=== PATIENT | female | born 1995 | race Caucasian/White ===

== ENCOUNTER 2016-09-18 14:36 | Outpatient (CLI) | payer OTHER ==
--- NOTE | 2016-09-18 14:52 | Non Stress Test Report ---
Non Stress Test Datetime Report Generated by CPN: 09/18/2016 14:51 DEMOGRAPHIC EGA NST: 34.5 INDICATION Indication for Study: Other Indication for Study (NST) Other: Repeat NST, 2VC VITAL SIGNS Temperature - NST: 98.0 Pulse - NST: 87 RESP - NST: 17 NBPSYS NST: 114 NBPDIA NST: 67 MONITORING Monitor Explained: Monitor Explained; Test Explained; Patient Verbalized Understanding Time on Monitor: 08/16/2016 16:07 Time off Monitor: 08/16/2016 16:51 NST Duration: 44 NST INTERVENTIONS NST Interventions: PO Hydration; Reposition Patient Physician Notified NST: Dr. Gamez BABY A: [id number] BABY A Movement : Present Contraction Frequency : irreg FHR Baseline : 125 Accelerations : 15X15 Decelerations : None Variability : Moderate 6-25bpm NST Review: Meets Criteria for Reactive NST NST Review and Verified By : Delilah Olivera RNC NST Results: Reactive NST REPORT Report Trigger: Send Report
[2016-09-18 15:37] LABS: AMNISURE (ROM) NEGATIVE (NEGATIVE)
[2016-09-18 15:43] LABS: APPEARANCE,URINE CLOUDY; BILIRUBIN,URINE NEGATIVE (NEGATIVE); GLUCOSE, URINE NEGATIVE (NEGATIVE); KETONES,URINE NEGATIVE (NEGATIVE); LEUKOCYTE ESTERASE,URINE LARGE (NEGATIVE); NITRITE,URINE NEGATIVE (NEGATIVE); PROTEIN,URINE NEGATIVE (NEGATIVE); URINE SPECIFIC GRAVITY 1.016; UROBILINOGEN,URINE NEGATIVE mg/dL (<2.0)
--- NOTE | 2016-09-18 16:00 | L&D Flow Sheet ---
LD Flowsheet Datetime Report Generated by CPN: 09/18/2016 16:00 Datetime: 09/18/2016 15:32 Uterine Activity Frequency (min): q 15 mins (Mavelyn Zechariah, SN) Pain Pain Scale: 1 (Mavelyn Zechariah, SN) Pain Presence: Intermittent (Mavelyn Zechariah, SN) Pain Type: Cramping (Mavelyn Zechariah, SN) Pain Location: Abdomen; Back (Mavelyn Zechariah, SN) Pain Goal: 0 (Mavelyn Zechariah, SN) Pain Coping: Talking Through Contractions (Mavelyn Zechraiah, SN) Vaginal Exam Vaginal Bleeding: None (Mavelyn Zechariah, SN) Maternal Assessment Level of Consciousness: Fully Conscious (Mavelyn Zechariah, SN) DTR's/Clonus: DTRs 2+; No Clonus (Mavelyn Zechariah, SN) Headache: Denies (Mavelyn Zechariah, SN) Breath Sounds, Left: Clear and Equal (Mavelyn Zechariah, SN) Breath Sounds, Right: Clear and Equal (Mavelyn Zechariah, SN) Nausea/Vomiting: Denies (Mavelyn Zechariah, SN) RUQ Epigastric Pain: Denies (Mavelyn Zechariah, SN) Communication LaborFlag: Antepartum (QS system process) Datetime: 09/18/2016 15:09 Temperature (F): 97.5 (Mavelyn Zechariah, SN) Temperature (C): 36.4 (QS system process) Communication LaborFlag: Antepartum (QS system process) Datetime: 09/18/2016 15:07 Assessment A Comments: Monitor applied and explained to pt. (Mavelyn Zechariah, SN) Patient Care Patient Position/Activity: Left Lateral (Mavelyn Zechariah, SN) Datetime: 09/18/2016 15:05 NBP Sys/Steph/Mean (mmHg): 108 (QS system process) : 58 (QS system process) : 77 (QS system process) Pulse: 69 (QS system process) Communication LaborFlag: Antepartum (QS system process) Datetime: 09/18/2016 15:04 Vital Signs Stage of : Antepartum (SN Veronica)
--- NOTE | 2016-09-18 16:13 | Non Stress Test Report ---
Non Stress Test Datetime Report Generated by CPN: 09/18/2016 16:13 DEMOGRAPHIC EGA NST: 39.3 INDICATION Indication for Study: Ordered by Provider MONITORING Monitor Explained: Monitor Explained; Test Explained; Patient Verbalized Understanding Time on Monitor: 09/18/2016 15:07 Time off Monitor: 09/18/2016 16:08 NST Duration: 61 NST INTERVENTIONS NST Interventions: PO Hydration Physician Notified NST: Dr. Gamez BABY A Movement : Present Contraction Frequency : Irreg FHR Baseline : 135 Accelerations : 15X15 Decelerations : None Variability : Moderate 6-25bpm NST Review: Meets Criteria for Reactive NST NST Review and Verified By : Alvarez Wolff RNC NST Results: Reactive NST REPORT Report Trigger: Send Report
[2016-09-18 16:19] LABS: URINE BARBITURATES SCREEN NEGATIVE; URINE METHADONE SCREEN NEGATIVE; URINE PHENCYCLIDINE SCREEN NEGATIVE
== END 2016-09-18 16:52 | disposition home or self-care (01) ==
LOC: LC 14:36
PROVIDERS: ATTEND Student in an Organized Health Care Education/Training Program
PROC: 4A1HXCZ Monitoring of Products of Conception, Cardiac Rate, External Approach (ICD-10-PCS; principal; 2016-09-18)
DX: O47.1 False labor at or after 37 completed weeks of gestation (principal); Z3A.39 39 weeks gestation of pregnancy
CPT/HCPCS: 59025; 80307; 81005; 84112

== ENCOUNTER 2016-09-22 20:23 | Inpatient (IN) | payer OTHER ==
[2016-09-22 21:00] LABS: APPEARANCE,URINE TURBID; BILIRUBIN,URINE NEGATIVE (NEGATIVE); GLUCOSE, URINE NEGATIVE (NEGATIVE); KETONES,URINE TRACE mg/dL (NEGATIVE); LEUKOCYTE ESTERASE,URINE MODERATE (NEGATIVE); NITRITE,URINE NEGATIVE (NEGATIVE); PROTEIN,URINE 100 mg/dL (NEGATIVE); URINE SPECIFIC GRAVITY 1.013; UROBILINOGEN,URINE NEGATIVE mg/dL (<2.0)
[2016-09-22 21:11] LABS: AMNISURE (ROM) POSITIVE (NEGATIVE)
[2016-09-22 21:37] LABS: URINE BARBITURATES SCREEN NEGATIVE; URINE METHADONE SCREEN NEGATIVE; URINE OPIATES LOW NEGATIVE; URINE PHENCYCLIDINE SCREEN NEGATIVE
--- NOTE | 2016-09-22 22:00 | L&D Flow Sheet ---
LD Flowsheet Datetime Report Generated by CPN: 09/22/2016 22:00 Datetime: 09/22/2016 21:54 NBP Sys/Steph/Mean (mmHg): 118 (QS system process) : 61 (QS system process) : 84 (QS system process) Pulse: 82 (QS system process) LaborFlag: Antepartum (QS system process) Datetime: 09/22/2016 21:29 Respirations: 18 (Margot Castillo) Monitor Mode: External; Palpation (Margot Castillo) Monitor Interventions for UA: [place] Adjusted (Margot Castillo) Frequency (min): 2-4 (Margot Castillo) Quality: Moderate (Margot Castillo) Duration (sec): 50-70 (Margot Castillo) Resting Tone (Palpate): Relaxed (Margot Castillo) Monitor Mode: External US (Margot Castillo) Monitor Interventions for FHR: Ultrasound Adjusted (Margot Castillo) FHR Baseline Rate : 130 (Margot Castillo) Variability: Moderate 6-25 bpm (Margot Castillo) Accelerations: 15X15 (Margot Castillo) Decelerations: None (Margot Castillo) Patient Position/Activity: Left Tilt (Margot Castillo) LaborFlag: Antepartum (QS system process) Datetime: 09/22/2016 21:26 IV/Blood Work: IV Started; IV Bolus Started (Annotations: 18g) (Margot Castillo) Patient Care Comments: lab at the bedside for lab draw (Margot Castillo) Datetime: 09/22/2016 21:23 NBP Sys/Steph/Mean (mmHg): 109 (QS system process) : 79 (QS system process) : 90 (QS system process) Pulse: 75 (QS system process) LaborFlag: Antepartum (QS system process) Datetime: 09/22/2016 21:00 Patient Care Comments: patient called for admit for positive amnisure. (Margot Castillo) Datetime: 09/22/2016 20:54 Frequency (min): 1-6 (Margot Castillo) Pain Scale: 2 (Margot Castillo) Pain Presence: Intermittent (Margot Castillo) Pain Type: Cramping (Margot Castillo) Pain Location: Abdomen; Back (Margot Castillo) Pain Goal: 0 (Margot Castillo) Pain Relief Measures: Comfort Measures (Margot Castillo) Pain Coping: Talking Through Contractions (Margot Castillo) Vaginal Bleeding: None (Margot Castillo) Level of Consciousness: Fully Conscious (Margot Castillo) DTR's/Clonus: DTRs 2+; No Clonus (Margot Castillo) Headache: Denies (Margot Castillo) Breath Sounds, Left: Clear and Equal (Margot Castillo) Breath Sounds, Right: Clear and Equal (Margot Castillo) Nausea/Vomiting: Denies (Margot Castillo) RUQ Epigastric Pain: Denies (Margot Castillo) Patient Position/Activity: Right Tilt (Margot Castillo) Instructional Method: Verbal (Margot Castillo) Plan of Care: Plan of Care Discussed (Margot Castillo) Unit Routine: [place] to Room; Call Stevens; Bed; Visiting Policy; Waiting Areas; Infant Security; Phone/Cell Phone Use; Photography; Unit Personnel; Consents Signed; Handwashing; Flu/Illness Precautions; Monitoring; IV Pumps; Safety/Fall Risk Prevention; Diet/Nutrition Services; Bathroom Privileges; Routine Time Outs; Medications (Margot Castillo) LaborFlag: Antepartum (QS system process) Datetime: 09/22/2016 20:52 NBP Sys/Steph/Mean (mmHg): 104 (QS system process) : 65 (QS system process) : 80 (QS system process) Pulse: 102 (QS system process) LaborFlag: Antepartum (QS system process) Datetime: 09/22/2016 20:48 Dilatation (cm): 2.0 (Margot Castillo) Effacement (%): 50 (Margot Castillo) Station: -2 (Margot Castillo) Exam by: A Castillo RN (Margot Castillo) Datetime: 09/22/2016 20:34 Patient Care Comments: patient to the floor for labor check (Margot Castillo)
[2016-09-22 22:04] LABS: ABSOLUTE BASOPHILS # (AUTO) 0.1 10^3/uL (0.0-0.2); ABSOLUTE LYMPHOCYTES (AUTO) 1.6 10^3/uL (0.5-4.7); ABSOLUTE MONOCYTES (AUTO) 0.8 10^3/uL (0.1-1.4); ABSOLUTE NEUT (AUTO) 9.8 10^3/uL (1.7-8.2); BASOPHILS % (AUTO) 0.5 % (0-2); EOSINOPHILS % (AUTO) 0.3 % (0-6); HEMATOCRIT 33.4 % (36.0-47.0); HEMOGLOBIN 10.6 g/dL (12.0-15.5); HGB HCT DIFFERENCE -1.6; LYMPHOCYTES % (AUTO) 12.6 % (13-45); MEAN CORPUSCULAR HEMOGLOBIN 24.2 pg (27.0-33.4); MEAN CORPUSCULAR HGB CONC 31.9 g/dL (32.0-36.0); MEAN CORPUSCULAR VOLUME 76 fl (80-97); MONOCYTES % (AUTO) 6.7 % (3-13); RED CELL DISTRIBUTION WIDTH 15.7 % (11.5-14.0); SEGMENTED NEUTROPHILS % (AUTO) 79.9 % (42-78); WHITE BLOOD COUNT 12.3 10^3/uL (4.0-10.5)
[2016-09-22] MEDS ORDERED: EPHEDRINE SULFATE INJ 50 MG/1 ML AMPULE ONE (22:27)
[2016-09-22] MEDS ORDERED: FENTANYL/BUPIVACAINE/NS/PF 200 MCG/100 ML RTUINJ EPI ONE (22:27)
[2016-09-22] MEDS ORDERED: BUPIVACAINE HCL 0.25 % INJ/PF (2.5 MG/1 ML) 30 ML VIAL ONE (22:27)
[2016-09-23] MEDS ORDERED: OXYTOCIN/NORMAL SALINE 1,000 ML IV PRN ×2 (00:13→14:28)
[2016-09-23] MEDS ORDERED: RINGERS SOLUTION,LACTATED 1,000 ML IV PRN ×2 (00:13→14:28)
[2016-09-23] MEDS ORDERED: RINGERS SOLUTION,LACTATED 300 ML IV ONE (00:13)
[2016-09-23] MEDS ORDERED: FENTANYL/BUPIVACAINE/NS/PF 100 ML EPI PRN ×2 (00:14→00:25)
[2016-09-23] MEDS ORDERED: BENZOIN/ALOE VERA/STORAX/TOLU TINCTURE 60 ML TP PRN ×2 (00:14→00:25)
[2016-09-23] MEDS ORDERED: BUPIVACAINE HCL 0.25 % INJ/PF (2.5 MG/1 ML) 30 ML VIAL INFIL ONE ×2 (00:14→00:25)
--- NOTE | 2016-09-23 06:29 | L&D Progress Notes ---
PROGRESS NOTES Datetime Report Generated by CPN: 09/23/2016 06:28 PROGRESS NOTE Comment: In to eval pt...over course of night, fetus only able to tolerate positional on maternal right side. FSE and IUPC placed. prolonged variable noted when pt in r lat decub getting iupc. Positioned in hands and knees and infant recovered. Now back to right side with oxygen on . Has received ivf bolus. Discussed r/b/a of if need arises. Vertex already with molding at 0 station and suspected op. FETUS A FHR Category: Category II SIGNATURE SIGNATURE: [id number] SIGNATURE: [id number] SIGNATURE: [id number] SIGNATURE: [id number] Signature: with User ID: [email or web address]
[2016-09-23] MEDS ORDERED: FENTANYL/BUPIVACAINE/NS/PF 200 MCG/100 ML RTUINJ EPI ONE (07:29)
--- NOTE | 2016-09-23 08:01 | L&D Flow Sheet ---
LD Flowsheet Datetime Report Generated by CPN: 09/23/2016 08:00 Datetime: 09/23/2016 07:55 NBP Sys/Steph/Mean (mmHg): 116 (QS system process) : 56 (QS system process) : 79 (QS system process) Pulse: 102 (QS system process) LaborFlag: Antepartum (QS system process) Datetime: 09/23/2016 07:44 Monitor Interventions for UA: [place] Adjusted (Jasmin Coronado, RN) Datetime: 09/23/2016 07:43 Patient Position/Activity: Right Lateral (Jasmin Cliff, RN) Patient Care Comments: IV bolus of D5 LR started (Jasmin Coronado, RN) Datetime: 09/23/2016 07:40 NBP Sys/Setph/Mean (mmHg): 117 (QS system process) : 66 (QS system process) : 79 (QS system process) Pulse: 103 (QS system process) LaborFlag: Antepartum (QS system process) Datetime: 09/23/2016 07:35 Maternal Comments: Pt sitting up vomiting (Jasmin Coronado, RN) Datetime: 09/23/2016 07:28 Anesthesia Comments: Dr. Gordon at bedside changing epidural bag (Jasmin Coronado, RN) Datetime: 09/23/2016 07:25 NBP Sys/Steph/Mean (mmHg): 110 (QS system process) : 63 (QS system process) : 82 (QS system process) Pulse: 75 (QS system process) Level of Consciousness: Fully Conscious (Jasmin Coronado RN) DTR's/Clonus: DTRs 2+; No Clonus (Jasmin Coronado RN) Headache: Denies (Jasmin Coronado RN) Breath Sounds, Left: Clear and Equal (Jasmin Coronado RN) Breath Sounds, Right: Clear and Equal (Jasmin Coronado RN) Nausea/Vomiting: Denies (Jasmin Coronado RN) RUQ Epigastric Pain: Denies (Jasmin Coronado RN) LaborFlag: Antepartum (QS system process) Datetime: 09/23/2016 07:24 Respirations: 14 (Jasmin Coronado RN) Temperature (F): 99.5 (Jasmin Coronado RN) Temperature (C): 37.5 (QS system process) Pain Scale: 3 (Jasmin Coronado RN) Pain Presence: Constant (Jasmin Coronado RN) Pain Type: Ache (Jasmin Coronado RN) Pain Location: Back (Jasmin Coronado RN) Pain Relief Measures: Comfort Measures (Jasmin Coronado RN) LaborFlag: Antepartum (QS system process) Datetime: 09/23/2016 07:09 NBP Sys/Steph/Mean (mmHg): 106 (QS system process) : 61 (QS system process) : 77 (QS system process) Pulse: 72 (QS system process) LaborFlag: Antepartum (QS system process) Datetime: 09/23/2016 06:58 Respirations: 18 (Margot Castillo) Monitor Mode: External; Palpation (Margot Castillo) Frequency (min): 1.5-2 (Margot Castillo) Quality: Moderate (Margot Castillo) Duration (sec): 40-60 (Margot Castillo) Resting Tone (Palpate): Relaxed (Margot Castillo) Monitor Mode: Internal Scalp Electrode (Margot Castillo) FHR Baseline Rate : 140 (Margot Castillo) Variability: Minimal - Undetectable to <=5 bpm (Margot Castillo) Accelerations: None (Margot Castillo) Decelerations: Variable (Margot Castillo) Patient Position/Activity: Right Lateral; Peanut Ball (Margot Castillo) LaborFlag: Antepartum (QS system process) Datetime: 09/23/2016 06:55 NBP Sys/Steph/Mean (mmHg): 101 (QS system process) : 65 (QS system process) : 79 (QS system process) Pulse: 80 (QS system process) LaborFlag: Antepartum (QS system process) Datetime: 09/23/2016 06:45 Respirations: 18 (Margot Castillo) Monitor Mode: External; Palpation (Margot Castillo) Monitor Interventions for UA: [place] Adjusted (Margot Castillo) Frequency (min): 2-4 (Margot Castillo) Quality: Moderate (Margot Castlilo) Duration (sec): 50-70 (Margot Castillo) Resting Tone (Palpate): Relaxed (Margot Castillo) Monitor Mode: Internal Scalp Electrode (Margot Castillo) FHR Baseline Rate : 140 (Margot Castillo) Variability: Minimal - Undetectable to <=5 bpm (Margot Castillo) Accelerations: None (Margot Castillo) Decelerations: Variable (Margot Castillo) Patient Position/Activity: Right Lateral; Peanut Ball (Margot Castillo) LaborFlag: Antepartum (QS system process) Datetime: 09/23/2016 06:41 NBP Sys/Steph/Mean (mmHg): 104 (QS system process) : 65 (QS system process) : 79 (QS system process) Pulse: 63 (QS system process) LaborFlag: Antepartum (QS system process) Datetime: 09/23/2016 06:38 Monitor Interventions for UA: [place] Adjusted (Margot Castillo) Contraction Comments: disconnected iupc and reconnected the external monitor (Mragot Castillo) Datetime: 09/23/2016 06:30 Respirations: 18 (Margot Castillo) Temperature (F): 98.3 (Margot Castillo) Temperature (C): 36.8 (QS system process) Temperature Route: Oral (Margot Castillo) Monitor Mode: External; Palpation (Margot Castillo) Monitor Interventions for UA: [place] Adjusted (Margot Castillo) Frequency (min): 2-4 (Margot Castillo) Quality: Moderate (Margot Castillo) Duration (sec): 50-70 (Margot Castillo) Resting Tone (Palpate): Relaxed (Margot Castillo) Monitor Mode: Internal Scalp Electrode (Margot Castillo) FHR Baseline Rate : 140 (Margot Castillo) Variability: Minimal - Undetectable to <=5 bpm (Margot Castillo) Accelerations: None (Margot Castillo) Decelerations: Variable (Margot Castillo) Patient Position/Activity: Right Lateral; Peanut Ball (Margot Castillo) LaborFlag: Antepartum (QS system process) Datetime: 09/23/2016 06:27 NBP Sys/Steph/Mean (mmHg): 115 (QS system process) : 59 (QS system process) : 81 (QS system process) Pulse: 84 (QS system process) LaborFlag: Antepartum (QS system process) Datetime: 09/23/2016 06:21 Patient Position/Activity: Right Lateral; Peanut Ball (Margot Castillo) Datetime: 09/23/2016 06:14 Monitor Mode: Internal Scalp Electrode (Margot Castillo) Datetime: 09/23/2016 06:11 Patient Position/Activity: Hands-Knees (Margot Castillo) Patient Care Comments: emesis x1 (Margot Castillo) Datetime: 09/23/2016 06:07 Dilatation (cm): 6.0 (Margot Castillo) Effacement (%): 90 (Margot Castillo) Station: 0 (Margot Castillo) Exam by: Dr Neilsen (Margot Castillo) Datetime: 09/23/2016 06:06 Monitor Interventions for UA: IUPC Inserted (Margot Castillo) Datetime: 09/23/2016 06:05 Patient Care Comments: Dr He at the bedside for assessment and evaluation of the patient (Margot Castillo) Datetime: 09/23/2016 06:00 Respirations: 18 (Margot Castillo) Monitor Mode: External; Palpation (Margot Castillo) Monitor Interventions for UA: [place] Adjusted (Margot Castillo) Frequency (min): 1.5-3 (Margot Castillo) Quality: Moderate (Margot Castillo) Duration (sec): 50-70 (Margot Castillo) Resting Tone (Palpate): Relaxed (Margot Castillo) Monitor Mode: External US (Margot Castillo) Monitor Interventions for FHR: Ultrasound Adjusted (Margot Castillo) FHR Baseline Rate : 140 (Margot Castillo) Variability: Moderate 6-25 bpm (Margot Castillo) Accelerations: 10X10 (Margot Castillo) Decelerations: Variable (Margot Castillo) Patient Position/Activity: Right Lateral (Margot Castillo) LaborFlag: Antepartum (QS system process) Datetime: 09/23/2016 05:56 NBP Sys/Steph/Mean (mmHg): 105 (QS system process) : 68 (QS system process) : 80 (QS system process) Pulse: 60 (QS system process) LaborFlag: Antepartum (QS system process) Datetime: 09/23/2016 05:45 Respirations: 18 (Margot Castillo) Monitor Mode: External; Palpation (Margot Castillo) Monitor Interventions for UA: [place] Adjusted (Margot Castillo) Frequency (min): 1.5-3 (Margot Castillo) Quality: Moderate (Margot Castillo) Duration (sec): 50-70 (Margot Castillo) Resting Tone (Palpate): Relaxed (Margot Castillo) Monitor Mode: External US (Margot Castillo) Monitor Interventions for FHR: Ultrasound Adjusted (Margot Castillo) FHR Baseline Rate : 140 (Margot Castillo) Variability: Moderate 6-25 bpm (Margot Castillo) Accelerations: 10X10 (Margot Castillo) Decelerations: Variable (Margot Castillo) Patient Position/Activity: Right Lateral (Margot Castillo) LaborFlag: Antepartum (QS system process) Datetime: 09/23/2016 05:40 NBP Sys/Steph/Mean (mmHg): 107 (QS system process) : 64 (QS system process) : 81 (QS system process) Pulse: 91 (QS system process) LaborFlag: Antepartum (QS system process) Datetime: 09/23/2016 05:30 Respirations: 18 (Margot Castillo) Monitor Mode: External; Palpation (Margot Castillo) Frequency (min): 2-4 (Margot Castillo) Quality: Moderate (Margot Castillo) Duration (sec): 50-70 (Margot Castillo) Resting Tone (Palpate): Relaxed (Margot Castillo) Monitor Mode: External US (Margot Castillo) FHR Baseline Rate : 140 (Margot Castillo) Variability: Moderate 6-25 bpm (Margot Castillo) Accelerations: 10X10 (Margot Castillo) Decelerations: Variable (Margot Castillo) Patient Position/Activity: Right Tilt (Margot Castillo) LaborFlag: Antepartum (QS system process) Datetime: 09/23/2016 05:25 NBP Sys/Steph/Mean (mmHg): 121 (QS system process) : 62 (QS system process) : 76 (QS system process) Pulse: 83 (QS system process) Pitocin (milliunit): Pitocin Increased to (milliunits) @ (Annotations: 10) (Margot Castillo) LaborFlag: Antepartum (QS system process) Datetime: 09/23/2016 05:15 Respirations: 18 (Margot Castillo) Monitor Mode: External; Palpation (Margot Castillo) Monitor Interventions for UA: [place] Adjusted (Margot Castillo) Frequency (min): 1.5-4 (Margot Casitllo) Quality: Moderate (Margot Castillo) Duration (sec): 60-70 (Margot Castillo) Resting Tone (Palpate): Relaxed (Margot Castillo) Monitor Mode: External US (Margot Castillo) Monitor Interventions for FHR: Ultrasound Adjusted (Margot Castillo) FHR Baseline Rate : 140 (Margot Castillo) Variability: Moderate 6-25 bpm (Margot Castillo) Accelerations: 10X10 (Margot Castillo) Decelerations: Variable (Margot Castillo) Patient Position/Activity: Right Tilt (Margot Castillo) LaborFlag: Antepartum (QS system process) Datetime: 09/23/2016 05:11 NBP Sys/Steph/Mean (mmHg): 102 (QS system process) : 65 (QS system process) : 79 (QS system process) Pulse: 81 (QS system process) LaborFlag: Antepartum (QS system process) Datetime: 09/23/2016 05:09 NBP Sys/Steph/Mean (mmHg): 106 (QS system process) : 67 (QS system process) : 81 (QS system process) Pulse: 74 (QS system process) LaborFlag: Antepartum (QS system process) Datetime: 09/23/2016 05:00 Respirations: 18 (Margot Castillo) Monitor Mode: External; Palpation (Margot Castillo) Monitor Interventions for UA: [place] Adjusted (Margot Castillo) Frequency (min): 1.5-2 (Margot Castillo) Quality: Moderate (Margot Castillo) Duration (sec): 50-70 (Margot Castillo) Resting Tone (Palpate): Relaxed (Margot Castillo) Monitor Mode: External US (Margot Castillo) Monitor Interventions for FHR: Ultrasound Adjusted (Margot Castillo) FHR Baseline Rate : 140 (Margot Castillo) Variability: Moderate 6-25 bpm (Margot Castillo) Accelerations: 10X10 (Margot Castillo) Decelerations: Variable (Margot Castillo) Pitocin (milliunit): Pitocin Remains (milliunits) @ (Annotations: 8) (Margot Castillo) Patient Position/Activity: Right Lateral (Margot Castillo) LaborFlag: Antepartum (QS system process) Datetime: 09/23/2016 04:55 NBP Sys/Steph/Mean (mmHg): 105 (QS system process) : 68 (QS system process) : 80 (QS system process) Pulse: 75 (QS system process) LaborFlag: Antepartum (QS system process) Datetime: 09/23/2016 04:45 Respirations: 18 (Margot Castillo) Monitor Mode: External; Palpation (Margot Castillo) Monitor Interventions for UA: [place] Adjusted (Margot Castillo) Frequency (min): 1.5-2 (Margot Castillo) Quality: Moderate (Margot Castillo) Duration (sec): 50-70 (Margot Castillo) Resting Tone (Palpate): Relaxed (Margot Castillo) Monitor Mode: External US (Margot Castillo) Monitor Interventions for FHR: Ultrasound Adjusted (Margot Castillo) FHR Baseline Rate : 140 (Margot Castillo) Variability: Moderate 6-25 bpm (Margot Castillo) Accelerations: 10X10 (Margot Castillo) Decelerations: Variable (Margot Castillo) Patient Position/Activity: Right Lateral (Margot Castillo) LaborFlag: Antepartum (QS system process) Datetime: 09/23/2016 04:39 NBP Sys/Steph/Mean (mmHg): 106 (QS system process) : 69 (QS system process) : 84 (QS system process) Pulse: 68 (QS system process) LaborFlag: Antepartum (QS system process) Datetime: 09/23/2016 04:30 Respirations: 18 (Margot Castillo) Monitor Mode: External; Palpation (Margot Castillo) Monitor Interventions for UA: [place] Adjusted (Margot Castillo) Frequency (min): 2-4 (Margot Castillo) Quality: Moderate (Margot Castillo) Duration (sec): 50-70 (Margot Castillo) Resting Tone (Palpate): Relaxed (Margot Castillo) Monitor Mode: External US (Margot Castillo) Monitor Interventions for FHR: Ultrasound Adjusted (Margot Castillo) FHR Baseline Rate : 150 (Margot Castillo) Variability: Moderate 6-25 bpm (Margot Castillo) Accelerations: 10X10 (Margot Castillo) Decelerations: Variable (Margot Castillo) Pitocin (milliunit): Pitocin Remains (milliunits) @ (Annotations: 8 ) (Margot Castillo) Patient Position/Activity: Right Lateral (Margot Castillo) LaborFlag: Antepartum (QS system process) Datetime: 09/23/2016 04:25 NBP Sys/Steph/Mean (mmHg): 104 (QS system process) : 61 (QS system process) : 77 (QS system process) Pulse: 72 (QS system process) LaborFlag: Antepartum (QS system process) Datetime: 09/23/2016 04:13 Comments: rn at the bedside for fhr monitor adjustment and maternal repositioning (Margot Castillo) Patient Position/Activity: Right Tilt (Margot Castillo) Datetime: 09/23/2016 04:11 NBP Sys/Steph/Mean (mmHg): 107 (QS system process) : 64 (QS system process) : 80 (QS system process) Pulse: 103 (QS system process) Patient Position/Activity: Left Lateral; Peanut Ball (Margot Castillo) LaborFlag: Antepartum (QS system process) Datetime: 09/23/2016 04:10 Dilatation (cm): 6.0 (Margot Castillo) Effacement (%): 70 (Margot Castillo) Station: 0 (Margot Castillo) Exam by: A Castillo RN (Margot Castillo) Datetime: 09/23/2016 04:00 Respirations: 18 (Margot Castillo) Monitor Mode: External; Palpation (Margot Castillo) Monitor Interventions for UA: [place] Adjusted (Margot Castillo) Frequency (min): 1.5-2 (Margot Castillo) Quality: Moderate (Margot Castillo) Duration (sec): 50-70 (Margot Castillo) Resting Tone (Palpate): Relaxed (Margot Castillo) Monitor Mode: External US (Margot Castillo) Monitor Interventions for FHR: Ultrasound Adjusted (Margot Castillo) FHR Baseline Rate : 140 (Margot Castillo) Variability: Moderate 6-25 bpm (Margot Castillo) Accelerations: 10X10 (Margot Castillo) Decelerations: Variable (Margot Castillo) Pitocin (milliunit): Pitocin Remains (milliunits) @ (Annotations: 8 ) (Margot Castillo) Patient Position/Activity: Right Lateral; [place] (Margot Castillo) LaborFlag: Antepartum (QS system process) Datetime: 09/23/2016 03:54 NBP Sys/Steph/Mean (mmHg): 99 (QS system process) : 56 (QS system process) : 72 (QS system process) Pulse: 77 (QS system process) LaborFlag: Antepartum (QS system process) Datetime: 09/23/2016 03:45 Pitocin (milliunit): Pitocin Remains (milliunits) @ (Annotations: 8) (Margot Castillo) Datetime: 09/23/2016 03:44 Respirations: 18 (Margot Castillo) Monitor Mode: External; Palpation (Margot Castillo) Monitor Interventions for UA: [place] Adjusted (Margot Castillo) Frequency (min): 1.5-2 (Margot Castillo) Quality: Moderate (Margot Castillo) Duration (sec): 50-80 (Margot Castillo) Resting Tone (Palpate): Relaxed (Margot Castillo) Monitor Mode: External US (Margot Castillo) Monitor Interventions for FHR: Ultrasound Adjusted (Margot Castillo) FHR Baseline Rate : 140 (Margot Castillo) Variability: Moderate 6-25 bpm (Margot Castillo) Accelerations: 10X10 (Margot Castillo) Decelerations: Variable (Margot Castillo) Patient Position/Activity: Right Lateral; Peanut Ball (Margot Castillo) LaborFlag: Antepartum (QS system process) Datetime: 09/23/2016 03:40 NBP Sys/Steph/Mean (mmHg): 105 (QS system process) : 59 (QS system process) : 76 (QS system process) Pulse: 76 (QS system process) LaborFlag: Antepartum (QS system process) Datetime: 09/23/2016 03:29 Respirations: 18 (Margot Castillo) Monitor Mode: External; Palpation (Margot Castillo) Monitor Interventions for UA: [place] Adjusted (Margot Castillo) Frequency (min): 2-4 (Margot Castillo) Quality: Moderate (Margot Castillo) Duration (sec): 50-70 (Margot Castillo) Resting Tone (Palpate): Relaxed (Margot Castillo) Monitor Mode: External US (Margot Castillo) Monitor Interventions for FHR: Ultrasound Adjusted (Margot Castillo) FHR Baseline Rate : 140 (Margot Castillo) Variability: Moderate 6-25 bpm (Margot Castillo) Accelerations: 15X15 (Margot Castillo) Decelerations: Variable (Margot Castillo) Patient Position/Activity: Right Lateral; Peanut Ball (Margot Castillo) LaborFlag: Antepartum (QS system process) Datetime: 09/23/2016 03:26 NBP Sys/Steph/Mean (mmHg): 110 (QS system process) : 76 (QS system process) : 88 (QS system process) Pulse: 85 (QS system process) LaborFlag: Antepartum (QS system process) Datetime: 09/23/2016 03:25 Dilatation (cm): 6.0 (Margot Castillo) Effacement (%): 70 (Margot Castillo) Station: 0 (Margot Castillo) Exam by: Caitlyn Castillo RN (Margot Castillo) Vaginal Bleeding: Normal Show (Margot Castillo) Pitocin (milliunit): Pitocin Increased to (milliunits) @ (Annotations: 8 ) (Margot Castillo) Patient Position/Activity: Right Lateral; Peanut Ball (Margot Castillo) Datetime: 09/23/2016 03:14 Respirations: 18 (Margot Castillo) Monitor Mode: External; Palpation (Margot Castillo) Monitor Interventions for UA: [place] Adjusted (Margot Castillo) Frequency (min): 2-4 (Margot Castillo) Quality: Moderate (Margot Castillo) Duration (sec): 50-70 (Margot Castillo) Resting Tone (Palpate): Relaxed (Margot Castillo) Monitor Mode: External US (Margot Castillo) Monitor Interventions for FHR: Ultrasound Adjusted (Margot Castillo) FHR Baseline Rate : 145 (Margot Castillo) Variability: Moderate 6-25 bpm (Margot Castillo) Accelerations: 15X15 (Margot Castillo) Decelerations: None (Margot Castillo) Patient Position/Activity: Right Tilt (Margot Castillo) LaborFlag: Antepartum (QS system process) Datetime: 09/23/2016 03:11 NBP Sys/Steph/Mean (mmHg): 105 (QS system process) : 61 (QS system process) : 77 (QS system process) Pulse: 75 (QS system process) LaborFlag: Antepartum (QS system process) Datetime: 09/23/2016 03:00 Respirations: 18 (Margot Castillo) Monitor Mode: External; Palpation (Margot Castillo) Monitor Interventions for UA: [place] Adjusted (Margot Castillo) Frequency (min): 2-4 (Margot Castillo) Quality: Moderate (Margot Castillo) Duration (sec): 50-70 (Margot Castillo) Resting Tone (Palpate): Relaxed (Margot Castillo) Monitor Mode: External US (Margot Castillo) Monitor Interventions for FHR: Ultrasound Adjusted (Margot Castillo) FHR Baseline Rate : 145 (Margot Castillo) Variability: Moderate 6-25 bpm (Margot Castillo) Accelerations: 15X15 (Margot Castillo) Decelerations: None (Margot Castillo) Patient Position/Activity: Right Tilt (Margot Castillo) LaborFlag: Antepartum (QS system process) Datetime: 09/23/2016 02:55 NBP Sys/Steph/Mean (mmHg): 106 (QS system process) : 69 (QS system process) : 83 (QS system process) Pulse: 67 (QS system process) LaborFlag: Antepartum (QS system process) Datetime: 09/23/2016 02:47 Comments: rn at the bedside for fhr assessment and maternal repositioning (Margot Castillo) Patient Position/Activity: Right Tilt (Margot Castillo) Datetime: 09/23/2016 02:45 Respirations: 18 (Margot Castillo) Monitor Mode: External; Palpation (Margot Castillo) Monitor Interventions for UA: [place] Adjusted (Margot Castillo) Frequency (min): 2-3 (Margot Castillo) Quality: Moderate (Margot Castillo) Duration (sec): 50-70 (Margot Castillo) Resting Tone (Palpate): Relaxed (Margot Castillo) Monitor Mode: External US (Margot Castillo) Monitor Interventions for FHR: Ultrasound Adjusted (Margot Castillo) FHR Baseline Rate : 140 (Margot Castillo) FHR Baseline Changes: No Baseline Change (Margot Castillo) Variability: Absent - Undetectable (Margot Castillo) Accelerations: 10X10 (Margot Castillo) Decelerations: None (Margot Castillo) Patient Position/Activity: Left Tilt (Margot Castillo) LaborFlag: Antepartum (QS system process) Datetime: 09/23/2016 02:40 NBP Sys/Steph/Mean (mmHg): 99 (QS system process) : 56 (QS system process) : 69 (QS system process) Pulse: 69 (QS system process) LaborFlag: Antepartum (QS system process) Datetime: 09/23/2016 02:30 Respirations: 18 (Margot Castillo) Monitor Mode: External; Palpation (Margot Castillo) Monitor Interventions for UA: [place] Adjusted (Margot Castillo) Frequency (min): 2-4 (Margot Castillo) Quality: Moderate (Margot Castillo) Duration (sec): 50-70 (Margot Castillo) Resting Tone (Palpate): Relaxed (Margot Castillo) Monitor Mode: External US (Margot Castillo) Monitor Interventions for FHR: Ultrasound Adjusted (Margot Castillo) FHR Baseline Rate : 145 (Margot Castillo) Variability: Moderate 6-25 bpm (Margot Castillo) Accelerations: 10X10 (Margot Castillo) Decelerations: None (Margot Castillo) Patient Position/Activity: Left Tilt (Margot Castillo) LaborFlag: Antepartum (QS system process) Datetime: 09/23/2016 02:24 NBP Sys/Steph/Mean (mmHg): 91 (QS system process) : 55 (QS system process) : 69 (QS system process) Pulse: 77 (QS system process) Pitocin (milliunit): Pitocin Increased to (milliunits) @ (Annotations: 6 ) (Margot Castillo) LaborFlag: Antepartum (QS system process) Datetime: 09/23/2016 02:15 Respirations: 18 (Margot Castillo) Monitor Mode: External; Palpation (Margot Castillo) Monitor Interventions for UA: [place] Adjusted (Margot Castillo) Frequency (min): 2-4 (Margot Castillo) Quality: Moderate (Margot Castillo) Duration (sec): 50-70 (Margot Castillo) Resting Tone (Palpate): Relaxed (Margot Castillo) Monitor Mode: External US (Margot Castillo) Monitor Interventions for FHR: Ultrasound Adjusted (Margot Castillo) FHR Baseline Rate : 145 (Margot Castillo) Variability: Moderate 6-25 bpm (Margot Castillo) Accelerations: 10X10 (Margot Castillo) Decelerations: None (Mragot Castillo) Patient Position/Activity: Left Tilt (Margot Castillo) LaborFlag: Antepartum (QS system process) Datetime: 09/23/2016 02:11 NBP Sys/Steph/Mean (mmHg): 98 (QS system process) : 57 (QS system process) : 71 (QS system process) Pulse: 65 (QS system process) LaborFlag: Antepartum (QS system process) Datetime: 09/23/2016 01:58 Respirations: 18 (Margot Castillo) Monitor Mode: External; Palpation (Margot Castillo) Monitor Interventions for UA: [place] Adjusted (Margot Castillo) Frequency (min): 2-4 (Margot Castillo) Quality: Moderate (Margot Castillo) Duration (sec): 50-70 (Margot Castillo) Resting Tone (Palpate): Relaxed (Margot Castillo) Comments: rn at the bedside for fhr monitor adjustment (Margot Castillo) Patient Position/Activity: Left Tilt (Margot Castillo) LaborFlag: Antepartum (QS system process) Datetime: 09/23/2016 01:55 NBP Sys/Steph/Mean (mmHg): 102 (QS system process) : 59 (QS system process) : 73 (QS system process) Pulse: 79 (QS system process) LaborFlag: Antepartum (QS system process) Datetime: 09/23/2016 01:54 Pitocin (milliunit): Pitocin Increased to (milliunits) @ (Annotations: 4 ) (Margot Castillo) Patient Position/Activity: Left Tilt (Margot Castillo) Datetime: 09/23/2016 01:45 Respirations: 18 (Margot Castillo) Monitor Mode: External; Palpation (Margot Castillo) Monitor Interventions for UA: [place] Adjusted (Margot Castillo) Frequency (min): 2-4 (Margot Castillo) Quality: Moderate (Margot Castillo) Duration (sec): 50-70 (Margot Castillo) Resting Tone (Palpate): Relaxed (Margot Castillo) Monitor Mode: External US (Margot Castillo) Monitor Interventions for FHR: Ultrasound Adjusted (Margot Castillo) FHR Baseline Rate : 140 (Margot Castillo) Variability: Moderate 6-25 bpm (Margot Castillo) Accelerations: 15X15 (Margot Castillo) Decelerations: None (Margot Castillo) Patient Position/Activity: Right Tilt (Margot Castillo) LaborFlag: Antepartum (QS system process) Datetime: 09/23/2016 01:40 NBP Sys/Steph/Mean (mmHg): 99 (QS system process) : 60 (QS system process) : 74 (QS system process) Pulse: 85 (QS system process) Pitocin (milliunit): Pitocin Remains (milliunits) @ (Annotations: 2 ) (Margot Castillo) LaborFlag: Antepartum (QS system process) Datetime: 09/23/2016 01:35 Comments: rn at the bedside for fhr monitor adjustment and maternal repositioning (Margot Castillo) Patient Position/Activity: Right Tilt (Margot Castillo) Datetime: 09/23/2016 01:30 Comments: rn at the bedside for fhr monitor adjustment increased movement. (Margot Casitllo) Datetime: 09/23/2016 01:25 NBP Sys/Steph/Mean (mmHg): 96 (QS system process) : 61 (QS system process) : 73 (QS system process) Pulse: 78 (QS system process) LaborFlag: Antepartum (QS system process) Datetime: 09/23/2016 01:20 Pitocin (milliunit): Pitocin Remains (milliunits) @ (Annotations: 2 ) (Margot Castillo) Datetime: 09/23/2016 01:15 Respirations: 18 (Margot Castillo) Monitor Mode: External; Palpation (Margot Castillo) Monitor Interventions for UA: [place] Adjusted (Margot Castillo) Frequency (min): 2-4 (Margot Castillo) Quality: Moderate (Margot Castillo) Duration (sec): 50-60 (Margot Castillo) Resting Tone (Palpate): Relaxed (Margot Castillo) Monitor Mode: External US (Margot Castillo) Monitor Interventions for FHR: Ultrasound Adjusted (Margot Castillo) FHR Baseline Rate : 145 (Margot Castillo) Variability: Moderate 6-25 bpm (Margot Castillo) Accelerations: 10X10 (Margot Castillo) Decelerations: None (Margot Castillo) Patient Position/Activity: Right Lateral (Margot Castillo) LaborFlag: Antepartum (QS system process) Datetime: 09/23/2016 01:10 NBP Sys/Steph/Mean (mmHg): 99 (QS system process) : 59 (QS system process) : 75 (QS system process) Pulse: 93 (QS system process) LaborFlag: Antepartum (QS system process) Datetime: 09/23/2016 01:06 NBP Sys/Steph/Mean (mmHg): 91 (QS system process) : 65 (QS system process) : 74 (QS system process) Pulse: 107 (QS system process) LaborFlag: Antepartum (QS system process) Datetime: 09/23/2016 01:05 Pitocin (milliunit): Pitocin Started (milliunits) @ (Annotations: 2 ) (Margot Castillo) Datetime: 09/23/2016 01:03 NBP Sys/Steph/Mean (mmHg): 98 (QS system process) : 67 (QS system process) : 77 (QS system process) Pulse: 74 (QS system process) LaborFlag: Antepartum (QS system process) Datetime: 09/23/2016 01:00 NBP Sys/Steph/Mean (mmHg): 98 (QS system process) : 67 (QS system process) : 79 (QS system process) Pulse: 83 (QS system process) Respirations: 18 (Margot Castillo) Monitor Mode: External; Palpation (Margot Castillo) Monitor Interventions for UA: [place] Adjusted (Margot Castillo) Frequency (min): 2-4 (Margot Castillo) Quality: Moderate (Margot Castillo) Duration (sec): 50-70 (Margot Castillo) Resting Tone (Palpate): Relaxed (Margot Castillo) Monitor Mode: External US (Margot Castillo) Monitor Interventions for FHR: Ultrasound Adjusted (Margot Castillo) FHR Baseline Rate : 140 (Margot Castillo) FHR Baseline Changes: No Baseline Change (Margot Castillo) Variability: Moderate 6-25 bpm (Margot Castillo) Accelerations: 15X15 (Margot Castillo) Decelerations: None (Margot Castillo) Patient Position/Activity: Right Lateral (Margot Castillo) LaborFlag: Antepartum (QS system process) Datetime: 09/23/2016 00:57 NBP Sys/Steph/Mean (mmHg): 96 (QS system process) : 66 (QS system process) : 77 (QS system process) Pulse: 72 (QS system process) LaborFlag: Antepartum (QS system process) Datetime: 09/23/2016 00:54 NBP Sys/Steph/Mean (mmHg): 102 (QS system process) : 68 (QS system process) : 80 (QS system process) Pulse: 99 (QS system process) LaborFlag: Antepartum (QS system process) Datetime: 09/23/2016 00:51 NBP Sys/Steph/Mean (mmHg): 103 (QS system process) : 69 (QS system process) : 81 (QS system process) Pulse: 75 (QS system process) LaborFlag: Antepartum (QS system process) Datetime: 09/23/2016 00:48 NBP Sys/Steph/Mean (mmHg): 101 (QS system process) : 68 (QS system process) : 80 (QS system process) Pulse: 83 (QS system process) LaborFlag: Antepartum (QS system process) Datetime: 09/23/2016 00:45 NBP Sys/Steph/Mean (mmHg): 100 (QS system process) : 67 (QS system process) : 79 (QS system process) Pulse: 75 (QS system process) Respirations: 18 (Margot Castillo) Monitor Mode: External; Palpation (Margot Castillo) Monitor Interventions for UA: [place] Adjusted (Margot Castillo) Frequency (min): 2-4 (Margot Castillo) Quality: Moderate (Margot Castillo) Duration (sec): 50-70 (Margot Castillo) Resting Tone (Palpate): Relaxed (Margot Castillo) Monitor Mode: External US (Margot Castillo) Monitor Interventions for FHR: Ultrasound Adjusted (Margot Castillo) FHR Baseline Rate : 140 (Margot Castillo) Variability: Moderate 6-25 bpm (Margot Castillo) Accelerations: 15X15 (Margot Castillo) Decelerations: None (Margot Castillo) Patient Position/Activity: Right Lateral (Margot Castillo) LaborFlag: Antepartum (QS system process) Datetime: 09/23/2016 00:42 NBP Sys/Steph/Mean (mmHg): 105 (QS system process) : 64 (QS system process) : 78 (QS system process) Pulse: 75 (QS system process) LaborFlag: Antepartum (QS system process) Datetime: 09/23/2016 00:39 NBP Sys/Steph/Mean (mmHg): 97 (QS system process) : 65 (QS system process) : 76 (QS system process) Pulse: 78 (QS system process) LaborFlag: Antepartum (QS system process) Datetime: 09/23/2016 00:36 NBP Sys/Steph/Mean (mmHg): 101 (QS system process) : 64 (QS system process) : 77 (QS system process) Pulse: 88 (QS system process) LaborFlag: Antepartum (QS system process) Datetime: 09/23/2016 00:33 NBP Sys/Steph/Mean (mmHg): 102 (QS system process) : 63 (QS system process) : 77 (QS system process) Pulse: 78 (QS system process) LaborFlag: Antepartum (QS system process) Datetime: 09/23/2016 00:30 NBP Sys/Steph/Mean (mmHg): 98 (QS system process) : 62 (QS system process) : 75 (QS system process) Pulse: 82 (QS system process) Respirations: 18 (Margot Castillo) Monitor Mode: External; Palpation (Margot Castillo) Monitor Interventions for UA: [place] Adjusted (Margot Castillo) Frequency (min): 3-5 (Margot Castillo) Quality: Moderate (Margot Castillo) Duration (sec): 60-80 (Margot Castillo) Resting Tone (Palpate): Relaxed (Margot Castillo) Monitor Mode: External US (Margot Castillo) Monitor Interventions for FHR: Ultrasound Adjusted (Margot Castillo) FHR Baseline Rate : 135 (Margot Castillo) Variability: Moderate 6-25 bpm (Margot Castillo) Accelerations: 15X15 (Margot Castillo) Decelerations: None (Margot Castillo) Patient Position/Activity: Right Lateral (Margot Castillo) LaborFlag: Antepartum (QS system process) Datetime: 09/23/2016 00:28 Provider Notified (Name): Dr Ying gave orders to restart the pitocin in an half an hour if tolerable. (Margot Castillo) Datetime: 09/23/2016 00:27 NBP Sys/Steph/Mean (mmHg): 100 (QS system process) : 57 (QS system process) : 74 (QS system process) Pulse: 81 (QS system process) LaborFlag: Antepartum (QS system process) Datetime: 09/23/2016 00:24 NBP Sys/Steph/Mean (mmHg): 106 (QS system process) : 53 (QS system process) : 76 (QS system process) Pulse: 84 (QS system process) LaborFlag: Antepartum (QS system process) Datetime: 09/23/2016 00:21 NBP Sys/Steph/Mean (mmHg): 103 (QS system process) : 56 (QS system process) : 75 (QS system process) Pulse: 75 (QS system process) LaborFlag: Antepartum (QS system process) Datetime: 09/23/2016 00:19 Patient Care Comments: Dr He at the bedside for assess. (Margot Castillo) Anesthesia Interventions Other: Ephedrine (Sarah Junior RN) Anesthesia Comments: 5 mg IV (Sarah Junior RN) Datetime: 09/23/2016 00:18 NBP Sys/Steph/Mean (mmHg): 111 (QS system process) : 59 (QS system process) : 82 (QS system process) Pulse: 103 (QS system process) LaborFlag: Antepartum (QS system process) Datetime: 09/23/2016 00:16 Patient Care Comments: O2 started via rebreather mask. (Sarah Sandi, RN) Datetime: 09/23/2016 00:15 Comments: rn at the bedside for fhr monitor assess and adjustment (Margot Castillo) Pitocin (milliunit): Pitocin Discontinued (Sarah Junior RN) IV/Blood Work: IV Bolus Started (Sarah Junior RN) Patient Position/Activity: Right Lateral (Margot Castillo) Datetime: 09/23/2016 00:13 NBP Sys/Steph/Mean (mmHg): 88 (QS system process) : 48 (QS system process) : 65 (QS system process) Pulse: 54 (QS system process) LaborFlag: Antepartum (QS system process) Datetime: 09/23/2016 00:05 Pitocin (milliunit): Pitocin Started (milliunits) @ (Annotations: 2 ) (Margot Castillo) Datetime: 09/23/2016 00:00 Respirations: 18 (Margot Castillo) Monitor Mode: External; Palpation (Margot Castillo) Monitor Interventions for UA: [place] Adjusted (Margot Castillo) Frequency (min): 2-5 (Margot Castillo) Quality: Moderate (Margot Castillo) Duration (sec): 60-70 (Margot Castillo) Resting Tone (Palpate): Relaxed (Margot Castillo) Monitor Mode: External US (Margot Castillo) Monitor Interventions for FHR: Ultrasound Adjusted (Margot Castillo) FHR Baseline Rate : 140 (Margot Castillo) Variability: Moderate 6-25 bpm (Margot Castillo) Accelerations: 15X15 (Margot Castillo) Decelerations: None (Margot Castillo) Patient Position/Activity: Left Lateral (Margot Castillo) LaborFlag: Antepartum (QS system process) Datetime: 09/22/2016 23:57 NBP Sys/Steph/Mean (mmHg): 96 (QS system process) : 52 (QS system process) : 70 (QS system process) Pulse: 79 (QS system process) LaborFlag: Antepartum (QS system process) Datetime: 09/22/2016 23:45 Respirations: 18 (Margot Castillo) Monitor Mode: External; Palpation (Margot Castillo) Monitor Interventions for UA: [place] Adjusted (Margot Castillo) Frequency (min): 2-4 (Margot Castillo) Quality: Moderate (Margot Castillo) Duration (sec): 50-60 (Margot Castillo) Resting Tone (Palpate): Relaxed (Margot Castillo) Monitor Mode: External US (Margot Castillo) Monitor Interventions for FHR: Ultrasound Adjusted (Margot Castillo) FHR Baseline Rate : 140 (Margot Castillo) Variability: Moderate 6-25 bpm (Margot Castillo) Accelerations: 15X15 (Margot Castillo) Decelerations: None (Margot Castillo) Patient Position/Activity: Left Lateral (Margot Castillo) LaborFlag: Antepartum (QS system process) Datetime: 09/22/2016 23:42 NBP Sys/Steph/Mean (mmHg): 110 (QS system process) : 53 (QS system process) : 77 (QS system process) Pulse: 75 (QS system process) LaborFlag: Antepartum (QS system process) Datetime: 09/22/2016 23:31 Respirations: 18 (Margot Castillo) Monitor Mode: External; Palpation (Margot Castillo) Monitor Interventions for UA: [place] Adjusted (Margot Castillo) Frequency (min): 2-4 (Margot Castillo) Quality: Moderate (Margot Castillo) Duration (sec): 50-70 (Margot Castillo) Resting Tone (Palpate): Relaxed (Margot Castillo) Monitor Mode: External US (Margot Castillo) Monitor Interventions for FHR: Ultrasound Adjusted (Margot Castillo) FHR Baseline Rate : 140 (Margot Castillo) Variability: Moderate 6-25 bpm (Margot Castillo) Accelerations: 10X10 (Margot Castlilo) Decelerations: None (Margot Castillo) Patient Position/Activity: Right Lateral (Margot Castillo) LaborFlag: Antepartum (QS system process) Datetime: 09/22/2016 23:15 Respirations: 18 (Margot Castillo) Monitor Mode: External; Palpation (Margot Castillo) Monitor Interventions for UA: [place] Adjusted (Margot Castillo) Frequency (min): 2-4 (Margot Castillo) Quality: Moderate (Margot Castillo) Duration (sec): 50-70 (Margot Castillo) Resting Tone (Palpate): Relaxed (Margot Castillo) Monitor Mode: External US (Margot Castillo) Monitor Interventions for FHR: Ultrasound Adjusted (Margot Castillo) FHR Baseline Rate : 140 (Margot Castillo) Variability: Moderate 6-25 bpm (Margot Castillo) Accelerations: 15X15 (Margot Castillo) Decelerations: None (Margot Castillo) Patient Position/Activity: Right Lateral (Margot Castillo) LaborFlag: Antepartum (QS system process) Datetime: 09/22/2016 23:11 NBP Sys/Steph/Mean (mmHg): 108 (QS system process) : 56 (QS system process) : 78 (QS system process) Pulse: 80 (QS system process) LaborFlag: Antepartum (QS system process) Datetime: 09/22/2016 23:10 NBP Sys/Steph/Mean (mmHg): 109 (QS system process) : 58 (QS system process) : 80 (QS system process) Pulse: 85 (QS system process) LaborFlag: Antepartum (QS system process) Datetime: 09/22/2016 23:09 NBP Sys/Steph/Mean (mmHg): 105 (QS system process) : 65 (QS system process) : 80 (QS system process) Pulse: 90 (QS system process) LaborFlag: Antepartum (QS system process) Datetime: 09/22/2016 23:08 Anesthesia Interventions Other: Ephedrine (Margot Castillo) Anesthesia Comments: 5 mg IV (Margot Castillo) Datetime: 09/22/2016 23:07 IV/Blood Work: IV Bolus Started (Margot Castillo) Patient Position/Activity: Right Lateral (Margot Castillo) Datetime: 09/22/2016 23:06 Patient Position/Activity: Left Lateral (Margot Castillo) Datetime: 09/22/2016 23:05 I/O Interventions: Adams Cath Inserted (Annotations: 14fr, clear yellow urine returned) (Margot Castillo) Datetime: 09/22/2016 23:01 NBP Sys/Steph/Mean (mmHg): 129 (QS system process) : 51 (QS system process) : 71 (QS system process) Pulse: 60 (QS system process) LaborFlag: Antepartum (QS system process) Datetime: 09/22/2016 23:00 Respirations: 18 (Margot Castillo) Monitor Mode: External; Palpation (Margot Castillo) Monitor Interventions for UA: [place] Adjusted (Margot Castillo) Frequency (min): 2-4 (Margot Castillo) Quality: Moderate (Margot Castillo) Duration (sec): 50-70 (Margot Castillo) Resting Tone (Palpate): Relaxed (Margot Castillo) Monitor Mode: External US (Margot Castillo) Monitor Interventions for FHR: Ultrasound Adjusted (Margot Castillo) FHR Baseline Rate : 140 (Margot Castillo) Variability: Moderate 6-25 bpm (Margot Castillo) Accelerations: 15X15 (Margot Castillo) Decelerations: None (Margot Castillo) LaborFlag: Antepartum (QS system process) Datetime: 09/22/2016 22:59 Pulse: 93 (QS system process) SpO2 (%): 100 (QS system process) LaborFlag: Antepartum (QS system process) Datetime: 09/22/2016 22:58 NBP Sys/Steph/Mean (mmHg): 117 (QS system process) : 54 (QS system process) : 78 (QS system process) Pulse: 97 (QS system process) LaborFlag: Antepartum (QS system process) Datetime: 09/22/2016 22:57 NBP Sys/Steph/Mean (mmHg): 127 (QS system process) : 62 (QS system process) : 87 (QS system process) LaborFlag: Antepartum (QS system process) Datetime: 09/22/2016 22:55 NBP Sys/Steph/Mean (mmHg): 122 (QS system process) : 63 (QS system process) : 86 (QS system process) Pulse: 94 (QS system process) LaborFlag: Antepartum (QS system process) Datetime: 09/22/2016 22:54 NBP Sys/Steph/Mean (mmHg): 117 (QS system process) : 55 (QS system process) : 79 (QS system process) Pulse: 90 (QS system process) Pulse: 87 (QS system process) Pulse: 95 (QS system process) SpO2 (%): 93 (QS system process) SpO2 (%): 98 (QS system process) Anesthesia Plans: Epidural (Margot Castillo) Epidural Positioning: Sitting (Margot Castillo) Epidural Procedure: Loading Dose (Margot Castillo) LaborFlag: Antepartum (QS system process) Datetime: 09/22/2016 22:53 NBP Sys/Steph/Mean (mmHg): 107 (QS system process) : 75 (QS system process) : 87 (QS system process) Pulse: 93 (QS system process) Anesthesia Plans: Epidural (Margot Castillo) Epidural Positioning: Sitting (Margot Castillo) Epidural Procedure: Test Dose (Margot Castillo) LaborFlag: Antepartum (QS system process) Datetime: 09/22/2016 22:52 NBP Sys/Steph/Mean (mmHg): 113 (QS system process) NBP Sys/Steph/Mean (mmHg): 108 (QS system process) : 79 (QS system process) : 74 (QS system process) : 91 (QS system process) : 87 (QS system process) Pulse: 92 (QS system process) Pulse: 100 (QS system process) LaborFlag: Antepartum (QS system process) Datetime: 09/22/2016 22:51 Anesthesia Plans: Epidural (Margot Castillo) Epidural Positioning: Sitting (Margot Castillo) Epidural Procedure: Cath Placed (Margot Castillo) Datetime: 09/22/2016 22:47 NBP Sys/Steph/Mean (mmHg): 115 (QS system process) : 75 (QS system process) : 90 (QS system process) Pulse: 86 (QS system process) Anesthesia Plans: Epidural (Margot Castillo) Epidural Positioning: Sitting (Margotyara Castillo) LaborFlag: Antepartum (QS system process) Datetime: 09/22/2016 22:44 Procedure Type: epidural (Margot Castillo) Procedure Verify: Correct Patient Identity; Correct Side and Site are Marked; Accurate Procedure Consent Form; Agreement on Procedure to be Done; Correct Patient Position; Relevant Images and Results are Properly Labeled and Displayed; Safety Precautions Based on Patient History or Medication Use (Margot Castillo) Datetime: 09/22/2016 22:42 Procedure Verify: Correct Patient Identity; Correct Side and Site are Marked; Accurate Procedure Consent Form; Agreement on Procedure to be Done; Correct Patient Position; Relevant Images and Results are Properly Labeled and Displayed; Addressed Need to Administer Antibiotics or Fluids for Irrigation; Safety Precautions Based on Patient History or Medication Use (Margot Castillo) Anesthesia Plans: Epidural (Margot Castillo) Epidural Positioning: Sitting (Margot Castillo) Anesthesia Comments: consent signed (Margot Castillo) Datetime: 09/22/2016 22:41 Communication: Provider at Bedside (Margot Castillo) Datetime: 09/22/2016 22:29 Respirations: 18 (Margot Castillo) Monitor Mode: External; Palpation (Margot Castillo) Monitor Interventions for UA: [place] Adjusted (Margot Castillo) Frequency (min): 2-4 (Margot Castillo) Quality: Moderate (Margot Castillo) Duration (sec): 50-70 (Margot Castillo) Resting Tone (Palpate): Relaxed (Margot Castillo) Monitor Mode: External US (Margot Castillo) Monitor Interventions for FHR: Ultrasound Adjusted (Margot Castillo) FHR Baseline Rate : 130 (Margot Castillo) Variability: Moderate 6-25 bpm (Margot Castillo) Accelerations: 15X15 (Margot Castillo) Decelerations: None (Margot Castillo) Patient Position/Activity: Left Lateral (Margot Castillo) LaborFlag: Antepartum (QS system process) Datetime: 09/22/2016 22:22 NBP Sys/Steph/Mean (mmHg): 103 (QS system process) : 56 (QS system process) : 72 (QS system process) Pulse: 81 (QS system process) LaborFlag: Antepartum (QS system process) Datetime: 09/22/2016 22:15 Procedure Type: epidural (Margot Castillo) Procedure Verify: Correct Patient Identity; Correct Side and Site are Marked; Accurate Procedure Consent Form; Agreement on Procedure to be Done; Correct Patient Position; Relevant Images and Results are Properly Labeled and Displayed; Safety Precautions Based on Patient History or Medication Use (Margot Castillo) Datetime: 09/22/2016 22:10 Dilatation (cm): 3.0 (Margot Castillo) Effacement (%): 50 (Margot Castillo) Station: -1 (Margotyara Castillo) Exam by: Caitlyn Castillo Rn (Margot Castillo) Datetime: 09/22/2016 22:00 Respirations: 18 (Margot Jonathan) Monitor Mode: External; Palpation (Margot Castillo) Monitor Interventions for UA: [place] Adjusted (Margot Castillo) Frequency (min): 2-4 (Margot Castillo) Quality: Moderate (Margot Castillo) Duration (sec): 50-70 (Margot Castillo) Resting Tone (Palpate): Relaxed (Margot Castillo) Monitor Mode: External US (Margot Castillo) Monitor Interventions for FHR: Ultrasound Adjusted (Margot Castillo) FHR Baseline Rate : 130 (Margot Castillo) Variability: Moderate 6-25 bpm (Margot Castillo) Accelerations: 15X15 (Margot Castillo) Decelerations: None (Margot Castillo) Patient Position/Activity: Left Lateral (Margot Castillo) LaborFlag: Antepartum (QS system process)
--- NOTE | 2016-09-23 09:19 | L&D Progress Notes ---
PROGRESS NOTES Datetime Report Generated by CPN: 09/23/2016 09:18 PROGRESS NOTE Impression: Arrest of Dilatation/Descent Procedures: Intrauterine Pressure Catheter Plan: Continue Present Management; Augmentation Comment: discussed with Dr. Cleaning VAGINAL EXAM Dilatation: 6 Effacement: 90 Station: 0 MEMBRANES Membranes: Ruptured FETUS A FHR - Baseline: 160 Variability: Moderate 6-25bpm FETUS C SIGNATURE: [id number] Assignment: Letty Cleaning MD Signature: with User ID: Isela : with User ID: Isela
--- NOTE | 2016-09-23 10:00 | L&D Flow Sheet ---
LD Flowsheet Datetime Report Generated by CPN: 09/23/2016 10:00 Datetime: 09/23/2016 09:56 NBP Sys/Steph/Mean (mmHg): 106 (QS system process) : 57 (QS system process) : 77 (QS system process) Pulse: 74 (QS system process) LaborFlag: Antepartum (QS system process) Datetime: 09/23/2016 09:48 Patient Position/Activity: Right Lateral (Jasmin Coronado, RN) Datetime: 09/23/2016 09:45 Monitor Mode: Internal (Jasmin Coronado RN) Frequency (min): 1-3 (Jasmin Coronado RN) Quality: Mild/Moderate (Jasmin Coronado RN) Duration (sec): 60-90 (Jasmin Coronado RN) Resting Tone (Palpate): Relaxed (Jasmin Coronado RN) Resting Tone IUP (mmHg): 25 (Jasmin Coronado RN) Intensity IUP (mmHg): 24 (Jasmin Coronado RN) Contraction Comments: MVU 120 (Jasmin Coronado RN) Monitor Mode: Internal Scalp Electrode (Jasmin Coronado RN) FHR Baseline Rate : 160 (Jasmin Coronado RN) Variability: Moderate 6-25 bpm (Jasmin Coronado, RN) Accelerations: None (Jasmin Coronado RN) Decelerations: None (Jasmin Coronado RN) Pitocin (milliunit): Pitocin Increased to (milliunits) @ 4 (Jasmin Coronado RN) Datetime: 09/23/2016 09:40 NBP Sys/Steph/Mean (mmHg): 118 (QS system process) : 59 (QS system process) : 81 (QS system process) Pulse: 117 (QS system process) LaborFlag: Antepartum (QS system process) Datetime: 09/23/2016 09:30 Monitor Mode: Internal (Jasmin Coronado RN) Frequency (min): 1-3 (Jasmin Coronado RN) Quality: Mild/Moderate (Jasmin Coronado RN) Duration (sec): 60-90 (Jasmin Coronado RN) Duration Criteria: Less than Two 120 Second Contractions (Jasmin Coronado RN) Pattern: Normal: <= 5 Contractions in 10 Minutes (Jasmin Coronado RN) Resting Tone (Palpate): Relaxed (Jasmin Coronado RN) Monitor Mode: Internal Scalp Electrode (Jasmin Coronado RN) FHR Baseline Rate : 170 (Jasmin Coronado RN) Variability: Moderate 6-25 bpm (Jasmin Coronado RN) Accelerations: None (Jasmin Coronado RN) Decelerations: Variable (Jasmin Coronado RN) Pitocin (milliunit): Pitocin Remains (milliunits) @ 2 (Jasmin Coronado RN) Datetime: 09/23/2016 09:27 Maternal Comments: Pt vomiting (Jasmin Coronado, RN) Datetime: 09/23/2016 09:21 Pitocin (milliunit): Pitocin Started (milliunits) @ 2; Pitocin 20 Units in 1000ml NS; Pitocin (units) in 1000ml NS (Jasmin Cliff, RN) Medication Comments: Pitocin restarted per KChristine Escobedo CNM (Jasmin Coronado, RN) Datetime: 09/23/2016 09:16 Patient Position/Activity: Hands-Knees (Jasmin Coronado, RN) Datetime: 09/23/2016 09:15 Monitor Mode: External; Internal (Jasmin Coronado RN) Frequency (min): 1-3 (Jasmin Coronado RN) Quality: Mild/Moderate (Jasmin Coronado RN) Duration (sec): 60-90 (Jasmin Coronado RN) Resting Tone (Palpate): Relaxed (Jasmin Coronado RN) Monitor Mode: Internal Scalp Electrode (Jasmin Coronado RN) FHR Baseline Rate : 160 (Jasmin Coronado RN) Variability: Moderate 6-25 bpm (Jasmin Coronado RN) Accelerations: None (Jasmin Coronado RN) Decelerations: Variable (Jasmin Coronado RN) Datetime: 09/23/2016 09:13 Monitor Interventions for UA: IUPC Inserted (Jasmin Coronado RN) Exam by: Yadi Escobedo CNM (Jasmin Coronado RN) Vaginal Exam Comments: unchanged (Jasmin Coronado RN) Communication Comments: Yadi Escobedo CNM at bedside (Jasmin Coronado RN) Datetime: 09/23/2016 09:10 NBP Sys/Steph/Mean (mmHg): 117 (QS system process) : 72 (QS system process) : 88 (QS system process) Pulse: 99 (QS system process) Comments: oxygen removed (Jasmin Coronado RN) LaborFlag: Antepartum (QS system process) Datetime: 09/23/2016 09:00 Monitor Mode: External (Jasmin Coronado RN) Frequency (min): 2-2.5 (Jasmin Coronado RN) Quality: Mild/Moderate (Jasmin Coronado RN) Duration (sec): 60-90 (Jasmin Coronado RN) Resting Tone (Palpate): Relaxed (Jasmin Coronado RN) Monitor Mode: Internal Scalp Electrode (Jasmin Coronado RN) FHR Baseline Rate : 165 (Jasmin Coronado RN) Variability: Minimal - Undetectable to <=5 bpm (Jasmin Coronado RN) Accelerations: None (Jasmin Coronado RN) Decelerations: Early; Late (Jasmin Coronado RN) Actions for Decelerations: Provider Reviewed Strip; Provider Notified (Jasmin Coronado RN) Datetime: 09/23/2016 08:54 NBP Sys/Steph/Mean (mmHg): 93 (QS system process) : 51 (QS system process) : 65 (QS system process) Pulse: 73 (QS system process) Comments: oxygen applied (Jasmin Coronado RN) LaborFlag: Antepartum (QS system process) Datetime: 09/23/2016 08:47 Patient Position/Activity: Left Extreme; Peanut Ball (Jasmin Coronado RN) Communication Comments: Yadi Escobedo CNM at bedside (Jasmin Coronado RN) Datetime: 09/23/2016 08:45 Monitor Mode: External (Jasmin Coronado RN) Frequency (min): 1-3 (Jasmin Coronado RN) Quality: Mild/Moderate (Jasmin Coronado RN) Duration (sec): 50-90 (Jasmin Coronado RN) Resting Tone (Palpate): Relaxed (Jasmin Coronado RN) Monitor Mode: Internal Scalp Electrode (Jasmin Coronado RN) FHR Baseline Rate : 155 (Jasmin Coronado RN) Variability: Moderate 6-25 bpm (Jasmin Coronado RN) Accelerations: None (Jasmin Coronado RN) Decelerations: Late; Variable (Jasmin Coronado RN) Actions for Decelerations: Provider Reviewed Strip; Provider Notified (Jasmin Coronado RN) Communication: RN at Bedside; Provider at Bedside (DANIAL Dumont) Communication Comments: Gregg and RN at bedside (DANIAL Dumont) Datetime: 09/23/2016 08:40 NBP Sys/Steph/Mean (mmHg): 94 (QS system process) : 53 (QS system process) : 68 (QS system process) Pulse: 64 (QS system process) LaborFlag: Antepartum (QS system process) Datetime: 09/23/2016 08:38 Patient Position/Activity: HOB Lowered; Left Extreme; Peanut Ball (DANIAL Dumont) Provider Reviewed Strip: Yes (DANIAL Dumont) Communication: RN at Bedside (DANIAL Dumont) Communication Comments: Evan Escobedo CNM on unit at station reviewing strip (DANIAL Dumont) Datetime: 09/23/2016 08:35 Temperature (F): 99.3 (Jasmin Coronado RN) Temperature (C): 37.4 (QS system process) LaborFlag: Antepartum (QS system process) Datetime: 09/23/2016 08:30 Monitor Mode: External (Jasmin Coronado RN) Frequency (min): 1-3 (Jasmin Coronado RN) Quality: Mild/Moderate (Jasmin Coronado RN) Duration (sec): 50-80 (Jasmin Coronado RN) Resting Tone (Palpate): Relaxed (Jasmin Coronado RN) Monitor Mode: Internal Scalp Electrode (Jasmin Coronado RN) FHR Baseline Rate : 155 (Jasmin Coronado RN) Variability: Minimal - Undetectable to <=5 bpm (Jasmin Coronado RN) Accelerations: None (Jasmin Coronado, RN) Decelerations: Variable (Jasmin Coronado, RN) Datetime: 09/23/2016 08:28 Pitocin (milliunit): Pitocin Discontinued (Jasmin Coronado RN) Patient Position/Activity: Left Extreme; Peanut Ball (Jasmin Coronado RN) Datetime: 09/23/2016 08:27 NBP Sys/Steph/Mean (mmHg): 103 (QS system process) : 67 (QS system process) : 80 (QS system process) Pulse: 88 (QS system process) LaborFlag: Antepartum (QS system process) Datetime: 09/23/2016 08:15 Monitor Mode: External (Jasmin Coronado RN) Frequency (min): 1-3 (Jasmin Coronado RN) Quality: Mild/Moderate (Jasmin Coronado RN) Duration (sec): 50-80 (Jasmin Coronado RN) Resting Tone (Palpate): Relaxed (Jasmin Coronado RN) Monitor Mode: Internal Scalp Electrode (Jasmin Coronado RN) FHR Baseline Rate : 155 (Jasmin Coronado RN) Variability: Minimal - Undetectable to <=5 bpm (Jasmin Coronaod RN) Accelerations: None (Jasmin Coronado RN) Decelerations: None (Jasmin Coronado RN) Pitocin (milliunit): Pitocin Remains (milliunits) @ 10 (Jasmin Coronado RN) Datetime: 09/23/2016 08:10 NBP Sys/Steph/Mean (mmHg): 117 (QS system process) : 61 (QS system process) : 84 (QS system process) Pulse: 89 (QS system process) LaborFlag: Antepartum (QS system process) Datetime: 09/23/2016 08:00 Monitor Mode: External (Jasmin Coronado RN) Frequency (min): 1-2 (Jasmin Coronado RN) Quality: Mild/Moderate (Jasmin Coronado RN) Duration (sec): 50-90 (Jasmin Coronado RN) Resting Tone (Palpate): Relaxed (Jasmin Coronado RN) Monitor Mode: Internal Scalp Electrode (Jasmin Coronado RN) FHR Baseline Rate : 155 (Jasmin Coronado, RN) Variability: Moderate 6-25 bpm (Jasmin Coronado, RN) Accelerations: None (Jasmin Coronado, RN) Decelerations: None (Jasmin Coronado, RN) Pitocin (milliunit): Pitocin Remains (milliunits) @ 10 (Jasmin Coronado, RN)
[2016-09-23] MEDS ORDERED: SUCCINYLCHOLINE CHLORIDE INJ 200 MG/10 ML VIAL ONE (10:18)
[2016-09-23] MEDS ORDERED: PHENYLEPHRINE HCL INJ/PF 10 MG/1 ML SDV ONE (10:18)
[2016-09-23] MEDS ORDERED: ONDANSETRON HCL INJ/PF 4 MG/2 ML SDV ONE (10:18)
[2016-09-23] MEDS ORDERED: ACETAMINOPHEN 325 MG TABLET ONE (10:28)
[2016-09-23] MEDS ORDERED: CITRIC ACID/SODIUM CITRATE ORAL SOLN 15 ML UDCUP ONE (10:44)
[2016-09-23] MEDS ORDERED: CEFAZOLIN 2 GM/D5W RTU 2 GM/50 ML RTUPB IV ONE (10:44)
[2016-09-23] MEDS ORDERED: CEFAZOLIN SODIUM 2 GM in DEXTROSE 5%-WATER 50 ML IV PRN (10:45)
[2016-09-23] MEDS ORDERED: OXYTOCIN/NORMAL SALINE 20 UNIT/1,000 ML RTUINJ ONE ×2 (10:49)
[2016-09-23] MEDS ORDERED: OXYTOCIN 10 UNIT/ML VIAL ONE (10:49)
[2016-09-23] MEDS ORDERED: MIDAZOLAM 2 MG/2 ML INJ ONE ×2 (10:50)
[2016-09-23] MEDS ORDERED: FENTANYL CITRATE INJ/PF 100 MCG/2 ML AMPUL ONE (10:50)
[2016-09-23] MEDS ORDERED: MISOPROSTOL 0.2 MG TABLET ONE (11:30)
[2016-09-23] MEDS ORDERED: METHYLERGONOVINE MALEATE INJ/PF 0.2 MG/1 ML AMPULE ONE (11:30)
[2016-09-23] MEDS ORDERED: ACETAMINOPHEN 325 MG TABLET PO ONE (11:45)
--- NOTE | 2016-09-23 12:00 | L&D Flow Sheet ---
LD Flowsheet Datetime Report Generated by CPN: 09/23/2016 12:00 Datetime: 09/23/2016 11:27 Stage of : Recovery (Jasmin Coronado, RN) Datetime: 09/23/2016 10:57 Antibiotics: Ancef IV (Gm) @ 2 (Jasmin Cliff, RN) Antiemetics/Antacids: Bicitra 15 ml PO (Jasmin Coronado, RN) Datetime: 09/23/2016 10:55 NBP Sys/Steph/Mean (mmHg): 103 (QS system process) : 63 (QS system process) : 78 (QS system process) Pulse: 67 (QS system process) LaborFlag: Antepartum (QS system process) Datetime: 09/23/2016 10:40 NBP Sys/Steph/Mean (mmHg): 121 (QS system process) : 78 (QS system process) : 94 (QS system process) Pulse: 109 (QS system process) Analgesics/Sedatives: Tylenol (mg) @ 975 (Jasmin Coronado RN) Communication Comments: C/S called (Jasmin Coronado RN) LaborFlag: Antepartum (QS system process) Datetime: 09/23/2016 10:35 Communication Comments: Dr. Cleaning at bedside discussing POC (Jasmin Coronado RN) Datetime: 09/23/2016 10:25 NBP Sys/Steph/Mean (mmHg): 110 (QS system process) : 72 (QS system process) : 86 (QS system process) Pulse: 85 (QS system process) LaborFlag: Antepartum (QS system process) Datetime: 09/23/2016 10:19 Dilatation (cm): 6.5 (Jasmin Coronado RN) Effacement (%): 80 (Jasmin Coronado RN) Station: 1 (Jasmin Coronado RN) Exam by: Yadi Escobedo CNM (Jasmin Coronado RN) Patient Position/Activity: Right Lateral (Jasmin Coronado RN) Communication Comments: Yadi Escobedo CNM at bedside (Jasmin Coronado RN) Datetime: 09/23/2016 10:16 Actions for Decelerations: Oxygen Applied; IV Bolus (Jasmin Coronado, RN) Patient Position/Activity: Left Extreme; Peanut Ball (Jasmin Coronado, RN) Datetime: 09/23/2016 10:14 Pitocin (milliunit): Pitocin Discontinued (Jasmin Coronado, RN) Datetime: 09/23/2016 10:08 Contraction Comments: Troubleshooting IUPC (Jasmin Coronado, RN) Datetime: 09/23/2016 10:04 Patient Position/Activity: Peanut Ball; Right Extreme (Jasmin Coronado RN) Datetime: 09/23/2016 10:00 Respirations: 14 (Jasmin Coronado RN) Temperature (F): 99.2 (Jasmin Coronado RN) Temperature (C): 37.3 (QS system process) Vital Sign Comments: axillary (Jasmin Coronado RN) Pitocin (milliunit): Pitocin Increased to (milliunits) @ 6 (Jasmin Coronado RN) LaborFlag: Antepartum (QS system process)
--- NOTE | 2016-09-23 12:11 | Brief Operative Note ---
BRIEF OPERATIVE REPORT DATE OF SURGERY: 09/23/16 TIME OF SURGERY: 11:30 PREOPERATIVE DIAGNOSIS: 40wk srom, failure to progress, nontolerance, chorio POSTOPERATIVE DIAGNOSIS: same, delivered SURGEON: PAWAN HONEYCUTT FINDINGS: viable female infant wt 8-3, ap 1/9. tight nuchal times 2, thick meconium. high spinal leading to general anesthesia, pphemorhage from atony- pit /methergine/cytotec COMPLICATIONS: none ESTIMATED BLOOD LOSS: 1000 TISSUE REMOVED OR ALTERED: placenta TECHNICAL PROCEDURE: Primary Low Transverse Section
[2016-09-23] MEDS ORDERED: KETOROLAC TROMETHAMINE INJ/PF 30 MG/1 ML SDV ONE (12:34)
[2016-09-23 13:08] LABS: HEMATOCRIT 28.5 % (36.0-47.0); HEMOGLOBIN 8.7 g/dL (12.0-15.5); HGB HCT DIFFERENCE -2.4; MEAN CORPUSCULAR HEMOGLOBIN 23.7 pg (27.0-33.4); MEAN CORPUSCULAR HGB CONC 30.5 g/dL (32.0-36.0); MEAN CORPUSCULAR VOLUME 78 fl (80-97); RED BLOOD COUNT 3.67 10^6/uL (3.72-5.28); RED CELL DISTRIBUTION WIDTH 15.5 % (11.5-14.0); WHITE BLOOD COUNT 22.9 10^3/uL (4.0-10.5)
[2016-09-23 13:34] LABS: ANISOCYTOSIS SLIGHT; BAND NEUTROPHILS % (MANUAL) 9 % (3-5); BASOPHILS % (MANUAL) 0 % (0-2); EOSINOPHILS % (MANUAL) 0 % (0-6); LYMPHOCYTES % (MANUAL) 3 % (13-45); MICROCYTOSIS SLIGHT; POLYCHROMASIA SLIGHT; TOTAL CELLS COUNTED 100; TOXIC GRANULATION SLIGHT
--- NOTE | 2016-09-23 14:11 | Delivery Summary ---
Del Sum A-C Datetime Report Generated by CPN: 09/23/2016 14:11 ADMISSION DATA Chief Complaint: Suspected Ruptured Membranes Admission Impression: Term, Intrauterine Admit Provider Comments: term iup with srom in good labor pattern, now comfortable with epidural DELIVERY PERSONNEL Delivery Doctor:: Letty Cleaning MD Anesthesiologist:: Evan Sotomayor MD IV THERAPY NURSE:: Shani Velasquez CRNA Labor and Delivery Nurse:: Jasmin Coronado RNtong setter Nurse:: Skylar Negrete RN Neonatal Nurse Practitioner:: DEBBIE Syed Nursery Nurse:: Cheryl Pierre RN Drapery Cutter Machine/JOURNAL ENTRY AUDIT CLERK: ST Javier Drapery Cutter Machine/JOURNAL ENTRY AUDIT CLERK: Letty Bhakta CST MATERNAL INFORMATION Delivery Anesthesia: Spinal; General Medications After Delivery: Pitocin Bolus-Please Comment; Pitocin Drip 20 Units/1000ml NSS; Methergine 0.2mg IM; Other-Please Comment Meds After Delivery Comment: Cytotec 1000mcg AK Estimated Blood Loss (ml): 1000 Maternal Complications: Chorioamnionitis; Maternal Fever Provider Comments: Primary LTCS for failure to progress/ nontolerance of labor/chorioamnionitis. live female infant wt 8-3, ap 1/9. thick meconium, nuchal cord times 2. high spinal to general anesthesia. PP hemorrhage given pit/methergine/cytotec LABOR SUMMARY EDC: 09/22/2016 00:00 No. Babies in Womb: 1 Attempted: No Labor Anesthesia: Epidural LABOR INFORMATION Reason for Induction: Not Applicable Onset of Labor: 09/23/2016 00:05 Oxytocin: Augmentation Group B Beta Strep: negative Antibiotics # of Doses: 1 Antibiotics Time of Last Dose: 1057 Name of Antibiotic Given: Ancef Steroids Given: None Reason Steroids Not Administered: Not Applicable MEMBRANES Membranes Rupture Method: Spontaneous Rupture of Membranes: 09/22/2016 19:50 Length of Rupture (hr): 15.60 Amniotic Fluid Color: Heavy Meconium Amniotic Fluid Amount: Moderate Amniotic Fluid Odor: Normal STAGES OF LABOR Stage 3 hr: 0 Stage 3 min: 1 Total Time in Labor hr: 11 Total Time in Labor min: 22 VAGINAL DELIVERY Episiotomy: None Laceration Extension: N/A Laceration Type: None Laceration Repair: Not Applicable CSECTION DELIVERY Primary Indication: Other Other Primary Indication: Failure to prorgress Secondary Indication: Nonreassuring Status CSection Urgency: Non-Scheduled CSection Incidence: Primary Labor: Labor Elective: Nonelective CSection Incision: Lower Uterine Transverse Uterine Closure: Double-layer closure BABY A INFORMATION Infant Delivery Date/Time: 09/23/2016 11:26 Method of Delivery: Born in Route : No : N/A Forceps: N/A Vacuum Extraction: N/A Shoulder Dystocia : No PRESENTATION/POSITION BABY A Presentation: Cephalic Cephalic Presentation: Vertex Breech Presentation: N/A PLACENTA INFORMATION BABY A Placenta Delivery Time : 09/23/2016 11:27 Placenta Method of Delivery: Manual Removal Placenta Status: Delivered SCORES BABY A Heart Rate 1 min: Slow, Below 100 bpm Resp Effort 1 min: Absent Reflex Irritability 1 min: No Response Muscle Tone 1 min: Flaccid Color 1 min: Blue/Pale SCORE 1 MIN: 1 Heart Rate 5 min: >100 bpm Resp Effort 5 min: Good Cry Reflex Irritability 5 min: Cough or Sneeze or Pulls Away Muscle Tone 5 min: Active Motion Color 5 min: Body [place], Extremities Blue SCORE 5 MIN: 9 INFORMATION BABY A Gestational Age at Delivery: 40.1 Gestational Status: Full Term- 39- 40.6 Weeks Outcome : Liveborn Infant Condition : Stable Infant Sex: Female IDENTIFICATION BABY A Infant Verification Date/Time: 09/23/2016 11:32 ID Band Number: [id number] Mother's Name Verified: Yes Infant RN Verifying : Alvarez Coronado RN [place] RN WEIGHT/LENGTH BABY A Infant Birthweight (gm): 3720 Weight (lb): 8 Infant Weight (oz): 3 Infant Length (in): 21.50 Infant Length (cm): 54.61 CORD INFORMATION BABY A No. Cord Vessels: 2 Nuchal Cord : Around Neck x2, Tight Nuchal Cord- Other: body Cord Blood Taken: Yes-For Storage (Mom's Blood type +) ASSESSMENT BABY A Infant Complications: Meconium; Other Physical Findings at Delivery: Caput Succedaneum; Other Physical Findings- Other: 2 vessel cord, required PPV at delivery Skin to Skin: No Infant Care By: Evan Joy CONDITIONING YARD SUPERVISOR Transferred To: [facility] BABY B INFORMATION : N/A SIGNATURES Signature: with User ID: [email or web address] : I was personally available for consultation and serving as supervising physician for the MLP.
--- NOTE | 2016-09-23 14:16 | Admission Physical ---
Datetime Report Generated by CPN: 09/23/2016 14:15 CURRENT ADMISSION Hx Assessment: The History has been Reviewed and is Current Chief Complaint: Suspected Ruptured Membranes Admit Plan: Admit to Unit; Initiate Labor Protocol ALLERGIES Medication Allergies: Unknown Medication Allergies: No Known Allergies (08/10/2016) Latex: No Latex Allergies Food Allergies: None Environmental Allergies: None OBSTETRICAL HISTORY EDC: 09/22/2016 00:00 : 1 Para: 0 Term: 0 : 0 SAB: 0 IAB: 0 Ectopic: 0 Livin Cesareans: 0 VBACs: 0 Multiple Births: 0 Gestational Diabetes: No Rh Sensitization: No Incompetent Cervix: No DARIO: No Infertility: No ART Treatment: No Uterine Anomaly: No IUGR: No Hx Previous C/S: No Macrosomia: No Hx Loss/Stillborn: No PIH: No Hx : No Placenta Previa/Abruption: No Depression/PP Depression: No PTL/PROM: No Post Hemorrhage: No Current Procedures: Ultrasound; NST Obstetrical History Comments: G1 - 2 vessels cord SEE RECORDS Alcohol: No Marijuana : No Cocaine: No Other Illicit Drugs: No Cigarettes: Never Smoker. [id number] MEDICAL HISTORY Diabetes: No Blood Transfusion: No Pulmonary Disease (Asthma, TB): No Breast Disease: No Hypertension: No Rock Singer Surgery: No Heart Disease: No Hosp/Surgery: No Autoimmune Disorder: No Anesthetic Complications: No Kidney Disease: No Abnormal Pap Smear: No Neuro/Epilepsy: No Psychiatric Disorders: No Other Medical Diseases: No Hepatitis/Liver Disease: No Significant Family History: No Varicosities/Phlebitis: No Trauma/Violence : No Thyroid Dysfunction: No INFECTIOUS HISTORY Gonorrhea: No Genital Herpes: No Chlamydia: No Tuberculosis: No Syphilis: No Hepatitis: No HIV/AIDS Exposure: No Rash or Viral Illness: No HPV: No PHYSICAL EXAM General: Normal HEENT: Normal Neurologic: Normal Thyroid: Normal Heart: Normal Lungs: Normal Breast: Normal Back: Normal Abdomen: Normal Genitourinary Exam: Normal Extremities: Normal DTRs: Normal Pelvic Type: Adequate Physical Exam Comments: efw 8-9 pounds amnisure positive gbs neg VAGINAL EXAM Dilatation: 6 Effacement: 90 Station: 0 MEMBRANES Membranes: Ruptured FETUS A EGA: 40.0 Monitoring: External US FHR Category: Category I Admit Comment: term iup with srom in good labor pattern, now comfortable with epidural PLANS FOR LABOR AND DELIVERY Labor and Delivery: None Pain Management: Natural; Medications Feeding Preference: Breast Benefit of Breast Feed Discussed: Yes Circumcision: N/A INFORMED CONSENT Signature: with User ID: [email or web address]
[2016-09-23] MEDS ORDERED: PROMETHAZINE HCL INJ 25 MG/1 ML VIAL IV PRN (14:28)
[2016-09-23] MEDS ORDERED: HYDROMORPHONE HCL INJ/PF 2 MG/ML AMPULE IV PRN (14:28)
[2016-09-23] MEDS ORDERED: ACETAMINOPHEN 325 MG TABLET PO PRN (14:28)
[2016-09-23] MEDS ORDERED: OXYCODONE-ACETAMINOPHEN 5-325 MG TABLET PO PRN ×2 (14:28)
[2016-09-23] MEDS ORDERED: DIPH/PERTUSS(ACELL)/TETANUS VAC/PF 0.5 ML SYR (>=10YO) IM PRN (14:28)
[2016-09-23] MEDS ORDERED: MEASLES,MUMPS&RUBELLA VACC/PF 0.5 ML VIAL SUBCUT PRN (14:28)
[2016-09-23] MEDS ORDERED: KETOROLAC TROMETHAMINE INJ/PF 30 MG/1 ML SDV IV ONE (15:00)
[2016-09-23] MEDS: DOCUSATE SODIUM 100 MG CAPSULE PO SCH (17:55)
[2016-09-23] MEDS: KETOROLAC TROMETHAMINE INJ/PF 30 MG/1 ML SDV IV SCH (17:55)
[2016-09-23] MEDS ORDERED: CEFAZOLIN 1 GM/D5W RTU 50 ML IV SCH (18:00)
[2016-09-23] MEDS ORDERED: CEFAZOLIN SODIUM 1 GM in DEXTROSE 5%-WATER 50 ML IV ONE (18:30)
--- NOTE | 2016-09-23 19:01 | L&D Flow Sheet ---
LD Flowsheet Datetime Report Generated by CPN: 09/23/2016 19:00 Datetime: 09/23/2016 14:10 Stage of : Recovery (Jasmin Coronado RN) Temperature Route: Oral (Jasmin Coronado RN) Pain Scale: 2 (Jasmin Coronado RN) Pain Presence: Constant (Jasmin Coronado RN) Pain Type: Burning; Cramping; Pressure; Ache (Jasmin Coronado RN) Pain Location: Abdomen; Perineum (Jasmin Coronado RN) Datetime: 09/23/2016 14:08 Pulse: 83 (QS system process) SpO2 (%): 100 (QS system process) Datetime: 09/23/2016 14:06 Stage of : Recovery (Jasmin Coronado RN) Temperature (F): 99.4 (Jasmin Coronado RN) Temperature (C): 37.4 (QS system process) Temperature Route: Oral (Jasmin Coronado RN) Datetime: 09/23/2016 14:03 Pulse: 87 (QS system process) SpO2 (%): 100 (QS system process) Datetime: 09/23/2016 14:00 Stage of : Recovery (Jasmin Coronado RN) Pulse: 113 (QS system process) SpO2 (%): 93 (QS system process) Pain Scale: 2 (Jasmin Coronado RN) Pain Presence: Constant (Jasmin Coronado RN) Pain Type: Burning; Cramping; Pressure; Ache (Jasmin Coronado RN) Pain Location: Abdomen; Perineum (Jasmin Coronado RN) Datetime: 09/23/2016 13:58 Pulse: 90 (QS system process) SpO2 (%): 99 (QS system process) Datetime: 09/23/2016 13:55 NBP Sys/Steph/Mean (mmHg): 104 (QS system process) : 66 (QS system process) : 80 (QS system process) Pulse: 81 (QS system process) Datetime: 09/23/2016 13:54 Pulse: 86 (QS system process) SpO2 (%): 93 (Annotations: Pulse oximeter not properly on toe. O2 sats 100%) (Jasmin Coronado, RN) Datetime: 09/23/2016 13:53 Pulse: 85 (QS system process) SpO2 (%): 95 (QS system process) Datetime: 09/23/2016 13:48 Pulse: 79 (QS system process) SpO2 (%): 93 (QS system process) SpO2 (%): 94 (QS system process) Datetime: 09/23/2016 13:45 Stage of : Recovery (Jasmin Coronado RN) Temperature (F): 99.8 (Jasmin Coronado RN) Temperature (C): 37.7 (QS system process) Temperature Route: Oral (Jasmin Coronado RN) Pain Scale: 2 (Jasmin Coronado RN) Pain Presence: Constant (Jasmin Coronado RN) Pain Type: Burning; Cramping; Pressure; Ache (Jasmin Coronado RN) Pain Location: Abdomen; Perineum (Jasmin Coronado RN) Datetime: 09/23/2016 13:43 Pulse: 94 (QS system process) Pulse: 100 (QS system process) SpO2 (%): 97 (QS system process) SpO2 (%): 93 (QS system process) Datetime: 09/23/2016 13:40 NBP Sys/Steph/Mean (mmHg): 106 (QS system process) : 68 (QS system process) : 82 (QS system process) Pulse: 90 (QS system process) Datetime: 09/23/2016 13:38 Pulse: 91 (QS system process) SpO2 (%): 100 (QS system process) Datetime: 09/23/2016 13:33 Pulse: 87 (QS system process) SpO2 (%): 100 (QS system process) Datetime: 09/23/2016 13:30 Stage of : Recovery (Jasmin Coronado RN) Pain Scale: 2 (Jasmin Coronado RN) Pain Presence: Constant (Jasmin Coronado RN) Pain Type: Burning; Cramping; Pressure; Ache (Jasmin Coronado RN) Pain Location: Abdomen; Perineum (Jasmin Coronado RN) Datetime: 09/23/2016 13:28 Pulse: 77 (QS system process) SpO2 (%): 100 (QS system process) Datetime: 09/23/2016 13:25 NBP Sys/Steph/Mean (mmHg): 104 (QS system process) : 66 (QS system process) : 79 (QS system process) Pulse: 77 (QS system process) Datetime: 09/23/2016 13:23 Pulse: 83 (QS system process) SpO2 (%): 100 (QS system process) Datetime: 09/23/2016 13:18 Pulse: 78 (QS system process) SpO2 (%): 100 (QS system process) Datetime: 09/23/2016 13:15 Stage of : Recovery (Jasmin Coronado RN) Pain Scale: 2 (Jasmin Coronado RN) Pain Presence: Constant (Jasmin Coronado RN) Pain Type: Burning; Cramping; Pressure; Ache (Jasmin Coronado RN) Pain Location: Abdomen; Perineum (Jasmin Coronado RN) Datetime: 09/23/2016 13:13 Pulse: 74 (QS system process) SpO2 (%): 100 (QS system process) Datetime: 09/23/2016 13:10 NBP Sys/Steph/Mean (mmHg): 106 (QS system process) : 66 (QS system process) : 80 (QS system process) Pulse: 79 (QS system process) Datetime: 09/23/2016 13:08 Pulse: 68 (QS system process) SpO2 (%): 100 (QS system process) Datetime: 09/23/2016 13:03 Pulse: 74 (QS system process) SpO2 (%): 100 (QS system process) Datetime: 09/23/2016 13:00 Stage of : Recovery (Jasmin Coronado RN) Pain Scale: 2 (Jasmin Coronado RN) Pain Presence: Constant (Jasmin Coronado RN) Pain Type: Burning; Cramping; Pressure; Ache (Jasmin Coronado RN) Pain Location: Abdomen; Perineum (Jasmin Coronado RN) Datetime: 09/23/2016 12:58 Pulse: 83 (QS system process) SpO2 (%): 100 (QS system process) Datetime: 09/23/2016 12:55 NBP Sys/Steph/Mean (mmHg): 109 (QS system process) : 63 (QS system process) : 81 (QS system process) Pulse: 83 (QS system process) Datetime: 09/23/2016 12:53 Pulse: 78 (QS system process) SpO2 (%): 100 (QS system process) Datetime: 09/23/2016 12:48 Stage of : Recovery (Jasminperry Coronado, RN) Pulse: 80 (QS system process) SpO2 (%): 100 (QS system process) Datetime: 09/23/2016 12:45 Stage of : Recovery (Jasmin Coronado RN) Pain Scale: 3 (Jasmin Coronado RN) Pain Presence: Constant (Jasmin Coronado RN) Pain Type: Burning; Cramping; Pressure; Ache (Jasmin Coronado RN) Pain Location: Abdomen; Perineum (Jasmin Coronado RN) Datetime: 09/23/2016 12:43 Stage of : Recovery (Jasmin Coronado RN) Pulse: 85 (QS system process) Respirations: 14 (Jasmin Coronado RN) SpO2 (%): 100 (QS system process) Temperature (F): 98.3 (Jasmin Coronado RN) Temperature (C): 36.8 (QS system process) Temperature Route: Oral (Jasmin Coroando RN) Datetime: 09/23/2016 12:40 NBP Sys/Steph/Mean (mmHg): 108 (QS system process) : 60 (QS system process) : 79 (QS system process) Pulse: 76 (QS system process) Datetime: 09/23/2016 12:38 NBP Sys/Steph/Mean (mmHg): 98 (QS system process) : 55 (QS system process) : 69 (QS system process) Pulse: 80 (QS system process) Pulse: 81 (QS system process) SpO2 (%): 100 (QS system process) Datetime: 09/23/2016 12:35 Stage of : Recovery (Jasmin Coronado, RN) Datetime: 09/23/2016 12:33 Pulse: 85 (QS system process) SpO2 (%): 100 (QS system process) Datetime: 09/23/2016 12:31 Stage of : Recovery (Jasmin Coronado RN) NBP Sys/Steph/Mean (mmHg): 141 (QS system process) : 69 (QS system process) : 90 (QS system process) Pulse: 83 (QS system process) Pain Scale: 3 (Jasmin Coronado RN) Pain Presence: Constant (Jasmin Coronado RN) Pain Type: Burning; Cramping; Pressure; Ache (Jasmin Coronado RN) Pain Location: Abdomen; Perineum (Jasmin Coronado RN) Datetime: 09/23/2016 12:28 Pulse: 81 (QS system process) SpO2 (%): 93 (QS system process) Datetime: 09/23/2016 12:25 NBP Sys/Steph/Mean (mmHg): 190 (Annotations: Pt shivering and moving arm) (Jasmin Cliff, RN) : 127 (QS system process) : 147 (QS system process) Pulse: 151 (QS system process) Datetime: 09/23/2016 12:23 Pulse: 91 (QS system process) SpO2 (%): 100 (QS system process) Datetime: 09/23/2016 12:18 Pulse: 95 (QS system process) SpO2 (%): 99 (QS system process) Datetime: 09/23/2016 12:15 Stage of : Recovery (Jasmin Coronado RN) NBP Sys/Steph/Mean (mmHg): 123 (QS system process) : 60 (QS system process) : 75 (QS system process) Pulse: 100 (QS system process) Respirations: 14 (Jasmin Coronado RN) Temperature (F): 96.6 (Jasmin Coronado RN) Temperature (C): 35.9 (QS system process) Temperature Route: Oral (Jasmin Coronado RN) Pain Scale: 0 (Jasmin Coronado RN) Pain Presence: None/Denies (Jasmin Coronado RN) Pain Type: N/A (Jasmin Coronado RN) Datetime: 09/23/2016 12:13 Pulse: 104 (QS system process) SpO2 (%): 98 (QS system process) Datetime: 09/23/2016 11:27 Stage of : Recovery (Jasmin Coronado RN) Datetime: 09/23/2016 11:04 Communication Comments: Monitors removed. PT transported to OR in bed (Jasmin Coronado RN) Datetime: 09/23/2016 10:58 Monitor Mode: Internal (Jasmin Coronado RN) Frequency (min): 1-3 (Jasmin Coronado RN) Quality: Mild/Moderate (Jasmin Coronado RN) Duration (sec): 50-90 (Jasmin Coronado RN) Resting Tone (Palpate): Relaxed (Jasmin Coronado RN) Monitor Mode: Internal Scalp Electrode (Jasmin Coronado RN) FHR Baseline Rate : 170 (Jasmin Coronado RN) Variability: Minimal - Undetectable to <=5 bpm (Jasmin Coronado RN) Accelerations: None (Jasmin Coronado RN) Decelerations: Variable (Jasmin Coronado, RN) Datetime: 09/23/2016 10:57 Antibiotics: Ancef IV (Gm) @ 2 (Jasmin Coronado RN) Antiemetics/Antacids: Bicitra 15 ml PO (Jasmin Coronado RN) Datetime: 09/23/2016 10:55 NBP Sys/Steph/Mean (mmHg): 103 (QS system process) : 63 (QS system process) : 78 (QS system process) Pulse: 67 (QS system process) LaborFlag: Antepartum (QS system process) Datetime: 09/23/2016 10:45 Monitor Mode: Internal (Jasmin Coronado RN) Frequency (min): 1-3 (Jasmin Coronado RN) Quality: Mild/Moderate (Jasmin Coronado RN) Duration (sec): 50-80 (Jasmin Coronado RN) Resting Tone (Palpate): Relaxed (Jasmin Coronado RN) Monitor Mode: Internal Scalp Electrode (Jasmin Coronado RN) FHR Baseline Rate : 170 (Jasmin Coronado RN) Variability: Minimal - Undetectable to <=5 bpm (Jasmin Coronado RN) Accelerations: None (Jasmin Coronado RN) Decelerations: None (Jasmin Coronado RN) Datetime: 09/23/2016 10:40 NBP Sys/Steph/Mean (mmHg): 121 (QS system process) : 78 (QS system process) : 94 (QS system process) Pulse: 109 (QS system process) Analgesics/Sedatives: Tylenol (mg) @ 975 (Jasmin Coronado RN) Communication Comments: C/S called (Jasmin Coronado RN) LaborFlag: Antepartum (QS system process) Datetime: 09/23/2016 10:35 Communication Comments: Dr. Cleaning at bedside discussing POC (Jasmin Coronado, RN) Datetime: 09/23/2016 10:30 Monitor Mode: Internal (Jasmin Coronado, RN) Frequency (min): 1-3 (Jasmin Coronado, RN) Quality: Mild/Moderate (Jasmin Coronado, RN) Duration (sec): 50-90 (Jasmin Coronado, RN) Resting Tone (Palpate): Relaxed (Jasmin Coronado, RN) Monitor Mode: Internal Scalp Electrode (Jasmin Coronado, RN) FHR Baseline Rate : 170 (Jasmin Coronado, RN) Variability: Minimal - Undetectable to <=5 bpm (Jasmin Coronado, RN) Accelerations: None (Jasmin Coronado, RN) Decelerations: Late; Variable (Jasmin Coronado, RN) Datetime: 09/23/2016 10:25 NBP Sys/Steph/Mean (mmHg): 110 (QS system process) : 72 (QS system process) : 86 (QS system process) Pulse: 85 (QS system process) LaborFlag: Antepartum (QS system process) Datetime: 09/23/2016 10:19 Dilatation (cm): 6.5 (Jasmin Coronado RN) Effacement (%): 80 (Jasmin Coronado RN) Station: 1 (Jasmin Coronado RN) Exam by: Yadi Escobedo CNM (Jasmin Coronado RN) Patient Position/Activity: Right Lateral (Jasmin Coronado RN) Communication Comments: Yadi Escobedo CNM at bedside (Jasmin Coronado RN) Datetime: 09/23/2016 10:16 Actions for Decelerations: Oxygen Applied; IV Bolus (Jasmin Coronado RN) Patient Position/Activity: Left Extreme; Peanut Ball (Jasmin Coronado RN) Datetime: 09/23/2016 10:15 Monitor Mode: Internal; Palpation (Jasmin Coronado, RN) Frequency (min): 1-2 (Jasmin Coronado, RN) Quality: Mild/Moderate (Jasmin Coronado, RN) Duration (sec): 50-90 (Jasmin Coronado, RN) Duration Criteria: Less than Two 120 Second Contractions (Jasmin Coronado, RN) Pattern: Normal: <= 5 Contractions in 10 Minutes (Jasmin Coronado, RN) Resting Tone (Palpate): Relaxed (Jasmin Coronado, RN) Monitor Mode: Internal Scalp Electrode (Jasmin Coronado, RN) FHR Baseline Rate : 170 (Jasmin Coronado, RN) Variability: Minimal - Undetectable to <=5 bpm (Jasminperry Coronado, RN) Accelerations: None (Jasminperry Coronado, RN) Decelerations: Late; Variable (Jasminperry Coronado, RN) Datetime: 09/23/2016 10:14 Pitocin (milliunit): Pitocin Discontinued (Jasmin Coronado, RN) Datetime: 09/23/2016 10:08 Contraction Comments: Troubleshooting IUPC (Jasmin Coronado RN) Datetime: 09/23/2016 10:04 Patient Position/Activity: Peanut Ball; Right Extreme (Jasmin Coronado RN) Datetime: 09/23/2016 10:00 Respirations: 14 (Jasmin Coronado RN) Temperature (F): 99.2 (Jasmin Coronado RN) Temperature (C): 37.3 (QS system process) Vital Sign Comments: axillary (Jasmin Coronado RN) Monitor Mode: Internal (Jasmin Coronado RN) Frequency (min): 1.5-2 (Jasmin Coronado RN) Quality: Mild/Moderate (Jasmin Coronado RN) Duration (sec): 60-70 (Jasmin Coronado RN) Resting Tone (Palpate): Relaxed (Jasmin Coronado RN) Monitor Mode: Internal Scalp Electrode (Jasmin Coronado RN) FHR Baseline Rate : 175 (Jasmin Coronado RN) Variability: Minimal - Undetectable to <=5 bpm (Jasmin Coronado RN) Accelerations: None (Jasmin Coronado RN) Decelerations: Variable (Jasmin Coronado RN) Pitocin (milliunit): Pitocin Increased to (milliunits) @ 6 (Jasmin Coronado RN) LaborFlag: Antepartum (QS system process) Datetime: 09/23/2016 09:56 NBP Sys/Steph/Mean (mmHg): 106 (QS system process) : 57 (QS system process) : 77 (QS system process) Pulse: 74 (QS system process) LaborFlag: Antepartum (QS system process) Datetime: 09/23/2016 09:48 Patient Position/Activity: Right Lateral (Jasmin Coronado RN) Datetime: 09/23/2016 09:45 Monitor Mode: Internal (Jasmin Coronado RN) Frequency (min): 1-3 (Jasmin Coronado RN) Quality: Mild/Moderate (Jasmin Coronado RN) Duration (sec): 60-90 (Jasmin Coronado RN) Resting Tone (Palpate): Relaxed (Jasmin Coronado RN) Resting Tone IUP (mmHg): 25 (Jasmin Coronado RN) Intensity IUP (mmHg): 24 (Jasmin Coronado RN) Contraction Comments: MVU 120 (Jasmin Coronado RN) Monitor Mode: Internal Scalp Electrode (Jasmin Coronado RN) FHR Baseline Rate : 160 (Jasmin Coronado RN) Variability: Moderate 6-25 bpm (Jasmin Coronado RN) Accelerations: None (Jasmin Coronado RN) Decelerations: None (Jasmin Coronado RN) Pitocin (milliunit): Pitocin Increased to (milliunits) @ 4 (Jasmin Coronado RN) Datetime: 09/23/2016 09:40 NBP Sys/Steph/Mean (mmHg): 118 (QS system process) : 59 (QS system process) : 81 (QS system process) Pulse: 117 (QS system process) LaborFlag: Antepartum (QS system process) Datetime: 09/23/2016 09:30 Monitor Mode: Internal (Jasmin Coronado RN) Frequency (min): 1-3 (Jasmin Coronado RN) Quality: Mild/Moderate (Jasmin Coronado RN) Duration (sec): 60-90 (Jasmin Coronado RN) Duration Criteria: Less than Two 120 Second Contractions (Jasmin Coronado, RN) Pattern: Normal: <= 5 Contractions in 10 Minutes (Jasmin Coronado RN) Resting Tone (Palpate): Relaxed (Jasmin Coronado, RN) Monitor Mode: Internal Scalp Electrode (Jasmin Coronado, RN) FHR Baseline Rate : 170 (Jasmin Coronado, RN) Variability: Moderate 6-25 bpm (Jasmin Coronado, RN) Accelerations: None (Jasmin Coronado, RN) Decelerations: Variable (Jasmin Coronado RN) Pitocin (milliunit): Pitocin Remains (milliunits) @ 2 (Jasmin Coornado RN) Datetime: 09/23/2016 09:27 Maternal Comments: Pt vomiting (Jasmin Coronado RN) Datetime: 09/23/2016 09:21 Pitocin (milliunit): Pitocin Started (milliunits) @ 2; Pitocin 20 Units in 1000ml NS; Pitocin (units) in 1000ml NS (Jasmin Coronado, RN) Medication Comments: Pitocin restarted per KChristine Escobedo CNM (Jasmin Coronado, RN) Datetime: 09/23/2016 09:16 Patient Position/Activity: Hands-Knees (Jasmin Coronado, RN) Datetime: 09/23/2016 09:15 Monitor Mode: External; Internal (Jasmin Coronado RN) Frequency (min): 1-3 (aJsmin Coronado RN) Quality: Mild/Moderate (Jasmin Coronado RN) Duration (sec): 60-90 (Jasmin Coronado RN) Resting Tone (Palpate): Relaxed (Jasmin Coronado RN) Monitor Mode: Internal Scalp Electrode (Jasmin Coronado RN) FHR Baseline Rate : 160 (Jasmin Coronado RN) Variability: Moderate 6-25 bpm (Jasmin Coronado RN) Accelerations: None (Jasmin Coronado RN) Decelerations: Variable (Jasmin Coronado RN) Datetime: 09/23/2016 09:13 Monitor Interventions for UA: IUPC Inserted (Jasmin Coronado RN) Exam by: Yadi Escobedo CNM (Jasmin Coronado RN) Vaginal Exam Comments: unchanged (Jasmin Coronado RN) Communication Comments: Yadi Escobedo CNM at bedside (Jasmin Coronado RN) Datetime: 09/23/2016 09:10 NBP Sys/Steph/Mean (mmHg): 117 (QS system process) : 72 (QS system process) : 88 (QS system process) Pulse: 99 (QS system process) Comments: oxygen removed (Jasmin Coronado RN) LaborFlag: Antepartum (QS system process) Datetime: 09/23/2016 09:00 Monitor Mode: External (Jasmin Coronado RN) Frequency (min): 2-2.5 (Jasmin Coronado RN) Quality: Mild/Moderate (Jasmin Coronado RN) Duration (sec): 60-90 (Jasmin Coronado RN) Resting Tone (Palpate): Relaxed (Jasmin Coronado RN) Monitor Mode: Internal Scalp Electrode (Jasmin Coronado RN) FHR Baseline Rate : 165 (Jasmin Coronado RN) Variability: Minimal - Undetectable to <=5 bpm (Jasmin Coronado RN) Accelerations: None (Jasmin Coronado RN) Decelerations: Early; Late (Jasmin Coronado RN) Actions for Decelerations: Provider Reviewed Strip; Provider Notified (Jasmin Coronado RN) Datetime: 09/23/2016 08:54 NBP Sys/Steph/Mean (mmHg): 93 (QS system process) : 51 (QS system process) : 65 (QS system process) Pulse: 73 (QS system process) Comments: oxygen applied (Jasmin Coronado RN) LaborFlag: Antepartum (QS system process) Datetime: 09/23/2016 08:47 Patient Position/Activity: Left Extreme; Peanut Ball (Jasmin Coronado RN) Communication Comments: Yadi Escobedo CNM at bedside (Jasmin Coronado RN) Datetime: 09/23/2016 08:45 Monitor Mode: External (Jasmin Coronado RN) Frequency (min): 1-3 (Jasmin Coronado RN) Quality: Mild/Moderate (Jasmin Coronado RN) Duration (sec): 50-90 (Jasmin Coronado RN) Resting Tone (Palpate): Relaxed (Jasmin Coronado RN) Monitor Mode: Internal Scalp Electrode (Jasmin Coronado RN) FHR Baseline Rate : 155 (Jasmin Coronado RN) Variability: Moderate 6-25 bpm (Jasmin Coronado RN) Accelerations: None (Jasmin Coronado RN) Decelerations: Late; Variable (Jasmin Coronado RN) Actions for Decelerations: Provider Reviewed Strip; Provider Notified (Jasmin Coronado RN) Communication: RN at Bedside; Provider at Bedside (Holley Kulkarni, RNC) Communication Comments: Gregg and RN at bedside (Holley Kulkarni, RNC) Datetime: 09/23/2016 08:40 NBP Sys/Steph/Mean (mmHg): 94 (QS system process) : 53 (QS system process) : 68 (QS system process) Pulse: 64 (QS system process) LaborFlag: Antepartum (QS system process) Datetime: 09/23/2016 08:38 Patient Position/Activity: HOB Lowered; Left Extreme; Peanut Ball (Holley Kulkarni, RNC) Provider Reviewed Strip: Yes (Holley Kulkarni, RNC) Communication: RN at Bedside (Holley Kulkarni RNC) Communication Comments: Evan Escobedo CNM on unit at station reviewing strip (Holley Kulkarni, RNC) Datetime: 09/23/2016 08:35 Temperature (F): 99.3 (Jasmin Coronado, RN) Temperature (C): 37.4 (QS system process) LaborFlag: Antepartum (QS system process) Datetime: 09/23/2016 08:30 Monitor Mode: External (Jasmin Coronado, RN) Frequency (min): 1-3 (Jasmin Coronado, RN) Quality: Mild/Moderate (Jasmin Coronado, RN) Duration (sec): 50-80 (Jasmin Coronado, RN) Resting Tone (Palpate): Relaxed (Jasmin Coronado, RN) Monitor Mode: Internal Scalp Electrode (Jasmin Coronado, RN) FHR Baseline Rate : 155 (Jasmin Coronado, RN) Variability: Minimal - Undetectable to <=5 bpm (Jasmin Coronado, RN) Accelerations: None (Jasmin Coronado, RN) Decelerations: Variable (Jasmin Cliff, RN) Datetime: 09/23/2016 08:28 Pitocin (milliunit): Pitocin Discontinued (Jasmin Coronado RN) Patient Position/Activity: Left Extreme; Peanut Ball (Jasmin Coronado RN) Datetime: 09/23/2016 08:27 NBP Sys/Steph/Mean (mmHg): 103 (QS system process) : 67 (QS system process) : 80 (QS system process) Pulse: 88 (QS system process) LaborFlag: Antepartum (QS system process) Datetime: 09/23/2016 08:15 Monitor Mode: External (Jasmin Coronado RN) Frequency (min): 1-3 (Jasmin Coronado RN) Quality: Mild/Moderate (Jasmin Coronado RN) Duration (sec): 50-80 (Jasmin Coronado RN) Resting Tone (Palpate): Relaxed (Jasmin Coronado RN) Monitor Mode: Internal Scalp Electrode (Jasmin Coronado RN) FHR Baseline Rate : 155 (Jasmin Coronado RN) Variability: Minimal - Undetectable to <=5 bpm (Jasmin Coronado RN) Accelerations: None (Jasmin Coronado RN) Decelerations: None (Jasmin Coronado RN) Pitocin (milliunit): Pitocin Remains (milliunits) @ 10 (Jasmin Coronado RN) Datetime: 09/23/2016 08:10 NBP Sys/Steph/Mean (mmHg): 117 (QS system process) : 61 (QS system process) : 84 (QS system process) Pulse: 89 (QS system process) LaborFlag: Antepartum (QS system process) Datetime: 09/23/2016 08:00 Monitor Mode: External (Jasmin Coronado RN) Frequency (min): 1-2 (Jasmin Coronado RN) Quality: Mild/Moderate (Jasmin Coronado RN) Duration (sec): 50-90 (Jasmin Coronado RN) Resting Tone (Palpate): Relaxed (Jasmin Coronado RN) Monitor Mode: Internal Scalp Electrode (Jasmin Coronado RN) FHR Baseline Rate : 155 (Jasmin Coronado RN) Variability: Moderate 6-25 bpm (Jasmin Coronado RN) Accelerations: None (Jasmin Coronado RN) Decelerations: None (Jasmin Coronado RN) Pitocin (milliunit): Pitocin Remains (milliunits) @ 10 (Jasmin Coronado RN) Datetime: 09/23/2016 07:55 NBP Sys/Steph/Mean (mmHg): 116 (QS system process) : 56 (QS system process) : 79 (QS system process) Pulse: 102 (QS system process) LaborFlag: Antepartum (QS system process) Datetime: 09/23/2016 07:45 Monitor Mode: External (Jasmin Coronado RN) Frequency (min): 1-3 (Jasmin Coronado RN) Quality: Mild/Moderate (Jasmin Coronado RN) Duration (sec): 50-80 (Jasmin Coronado RN) Resting Tone (Palpate): Relaxed (Jasmin Coronado RN) Monitor Mode: Internal Scalp Electrode (Jasmin Coronado RN) FHR Baseline Rate : 150 (Jasmin Coronado RN) Variability: Minimal - Undetectable to <=5 bpm (Jasmin Coronado, RN) Accelerations: None (Jasmin Coronado, RN) Decelerations: Variable (Jasmin Coronado, RN) Pitocin (milliunit): Pitocin Remains (milliunits) @ 10 (Jasmin Coronado, RN) Datetime: 09/23/2016 07:44 Monitor Interventions for UA: Fertile Adjusted (Jasmin Coronado, RN) Datetime: 09/23/2016 07:43 Patient Position/Activity: Right Lateral (Jasmin Coronado, RN) Patient Care Comments: IV bolus of D5 LR started (Jasmin Coronado, RN) Datetime: 09/23/2016 07:40 NBP Sys/Steph/Mean (mmHg): 117 (QS system process) : 66 (QS system process) : 79 (QS system process) Pulse: 103 (QS system process) LaborFlag: Antepartum (QS system process) Datetime: 09/23/2016 07:35 Maternal Comments: Pt sitting up vomiting (Jasmin Coronado RN) Datetime: 09/23/2016 07:30 Monitor Mode: External (Jasmin Coronado RN) Frequency (min): 1-3 (Jasmin Coronado RN) Quality: Mild/Moderate (Jasmin Coronado RN) Duration (sec): 50-80 (Jasmin Coronado RN) Resting Tone (Palpate): Relaxed (Jasmin Coronado RN) Monitor Mode: Internal Scalp Electrode (Jasmin Coronado RN) FHR Baseline Rate : 155 (Jasmin Coronado RN) Variability: Minimal - Undetectable to <=5 bpm (Jasmin Coronado RN) Accelerations: None (Jasmin Coronado RN) Decelerations: Variable (Jasmin Coronado RN) Pitocin (milliunit): Pitocin Remains (milliunits) @ 10 (Jasmin Coronado RN) Datetime: 09/23/2016 07:28 Anesthesia Comments: Dr. Gordon at bedside changing epidural bag (Jasmin Coronado RN) Datetime: 09/23/2016 07:25 NBP Sys/Steph/Mean (mmHg): 110 (QS system process) : 63 (QS system process) : 82 (QS system process) Pulse: 75 (QS system process) Level of Consciousness: Fully Conscious (Jasmin Coronado RN) DTR's/Clonus: DTRs 2+; No Clonus (Jasmin Coronado RN) Headache: Denies (Jasmin Coronado RN) Breath Sounds, Left: Clear and Equal (Jasmin Coronado RN) Breath Sounds, Right: Clear and Equal (Jasmin Coronado RN) Nausea/Vomiting: Denies (Jasmin Coronado RN) RUQ Epigastric Pain: Denies (Jasmin Coronado RN) LaborFlag: Antepartum (QS system process) Datetime: 09/23/2016 07:24 Respirations: 14 (Jasmin Coronado RN) Temperature (F): 99.5 (Jasmin Coronado RN) Temperature (C): 37.5 (QS system process) Pain Scale: 3 (Jasmin Coronado RN) Pain Presence: Constant (Jasmin Coronado RN) Pain Type: Ache (Jasmin Coronado RN) Pain Location: Back (Jasmin Coronado RN) Pain Relief Measures: Comfort Measures (Jasmin Coronado RN) LaborFlag: Antepartum (QS system process) Datetime: 09/23/2016 07:15 Monitor Mode: External (Jasmin Coronado RN) Frequency (min): 1-3 (Jasmin Coronado RN) Quality: Mild/Moderate (Jasmin Coronado RN) Duration (sec): 50-70 (Jasmin Coronado RN) Duration Criteria: Less than Two 120 Second Contractions (Jasmin Coronado RN) Pattern: Normal: <= 5 Contractions in 10 Minutes (Jasmin Coronado RN) Resting Tone (Palpate): Relaxed (Jasmin Coronado RN) Monitor Mode: Internal Scalp Electrode (Jasmin Coronado RN) FHR Baseline Rate : 150 (Jasmin Coornado RN) Variability: Minimal - Undetectable to <=5 bpm (Jasmin Coronado RN) Accelerations: None (Jasmin Coronado RN) Decelerations: Variable (Jasmin Coronado RN) Pitocin (milliunit): Pitocin Remains (milliunits) @ 10 (Jasmin Coronado RN) Datetime: 09/23/2016 07:09 NBP Sys/Steph/Mean (mmHg): 106 (QS system process) : 61 (QS system process) : 77 (QS system process) Pulse: 72 (QS system process) LaborFlag: Antepartum (QS system process)
[2016-09-23] MEDS ORDERED: KETOROLAC TROMETHAMINE INJ/PF 30 MG/1 ML SDV IV SCH (22:00)
[2016-09-23] MEDS: IBUPROFEN 800 MG TABLET PO SCH (23:05)
[2016-09-24] MEDS: CEFAZOLIN SODIUM 1 GM in DEXTROSE 5%-WATER 50 ML IV SCH ×4 (00:06→17:23)
[2016-09-24] MEDS ORDERED: RINGERS SOLUTION,LACTATED 500 ML IV ONE (01:15)
[2016-09-24] MEDS: KETOROLAC TROMETHAMINE INJ/PF 30 MG/1 ML SDV IV SCH (01:59)
[2016-09-24] MEDS: IBUPROFEN 800 MG TABLET PO SCH ×4 (06:00→23:50)
--- NOTE | 2016-09-24 06:01 | L&D General Admission ---
General Admit Datetime Report Generated by CPN: 09/24/2016 06:00 INFORMATION Patient Age: 20 (08/10/2016 15:27:QS system process) EDC: 09/22/2016 00:00 (08/10/2016 15:48:Eileen Roa RN) : 1 (08/10/2016 15:48:Eileen Roa RN) Para: 0 (08/10/2016 16:29:Eileen Roa RN) Term: 0 (08/10/2016 15:48:SN Veronica) : 0 (08/10/2016 15:48:SN Veronica) Spontaneous Abortions: 0 (08/10/2016 15:48:SN Veronica) Induced Abortions: 0 (08/10/2016 15:48:SN Veronica) Livin (08/10/2016 15:48:SN Veronica) Cesareans: 0 (08/10/2016 15:48:SN Veronica) VBACs: 0 (08/10/2016 15:48:SN Veronica) Ectopic: 0 (08/10/2016 15:48:SN Veronica) Multiple Births: 0 (08/10/2016 15:48:SN Veronica) Baby, Number in Womb: 1 (08/10/2016 16:29:Eileen Roa RN) CARE Primary Cake Icer And Packer: [email or web address] (08/10/2016 15:48:SN Veronica) Month of 1st Visit: 01/2016 (08/10/2016 15:48:SN Veronica) Adequate Care: Yes (08/10/2016 15:48:SN Veronica) Prepregnancy Weight (lb): 146 (08/10/2016 15:48:DANIAL Dumont) Prepregnancy Weight (kg): 66.4 (08/10/2016 15:48:QS system process) Height (in): 66 (09/23/2016 14:15:QS system process) ALLERGIES Medication Allergy: Unknown (08/10/2016 15:48:Mavelyn Zechariah, SN) Medication Allergies: No Known Allergies (08/10/2016) (08/10/2016 15:49:QS system process) Latex Allergy: No Latex Allergies (08/10/2016 15:48:Mavelyn Zechariah, SN) Food Allergies: None (08/10/2016 15:48:Mavelyn Zechariah, SN) Environmental Allergies: None (08/10/2016 15:48:Mavelyn Zechariah, SN) COMMUNICATION Primary Language: Greek (08/10/2016 15:48:Mavelyn Zechariah, SN) Medical Tx Preferred Language: Greek (08/10/2016 15:48:Mavelyn Zechariah, SN) Communication Barrier(s): None (08/10/2016 15:48:Mavelyn Zechariah, SN) DEMOGRAPHICS Address: [address] [place] [id number] (08/10/2016 15:27:QS system process) Zipcode: [address] (08/10/2016 15:27:QS system process) Home (08/10/2016 15:27:QS system process) SSN: [id number] (08/10/2016 15:27:QS system process) Next of Kin Name: ANTHONY MATTA (08/10/2016 15:27:QS system process) Next of Kin (08/10/2016 15:27:QS system process) Next of Kin Relationship: SPO (08/10/2016 15:27:QS system process) Date of : 1995 (08/10/2016 15:27:QS system process) Marital Status: (08/10/2016 15:27:QS system process) Sex: Female (08/10/2016 15:27:QS system process) Occupation: Homemaker (08/10/2016 15:48:DANIAL Dumont) Race: (08/10/2016 15:27:QS system process) Ethnicity: Non- or (08/10/2016 15:27:QS system process) Denominational: Scientologist (08/10/2016 15:27:QS system process) Education: 12 (08/10/2016 15:48:DANIAL Dumont) FOB Involved: Yes (08/10/2016 15:48:DANIAL Dumont) Father of Baby Name: Anthony Matta (08/10/2016 15:48:DANIAL Dumont) DRUG AND ALCOHOL USE Alcohol: No (08/10/2016 15:48:SN Veronica) Cigarettes: Never Smoker. [id number] (08/10/2016 15:48:Mavelyn Zechariah, SN) Marijuana: No (08/10/2016 15:48:Mavelyn Zechariah, SN) Cocaine: No (08/10/2016 15:48:Mavelyn Zechariah, SN) Other Illicit Drugs: No (08/10/2016 15:48:Mavelyn Zechariah, SN) VACCINE HISTORY Influenza Vaccine: Yes (08/10/2016 15:48:Mavelyn Zechariah, SN) Influenza Date: 07/02/16 (08/10/2016 15:48:Mavelyn Zechariah, SN) Pneumococcal Vaccine: No (08/10/2016 15:48:Mavelyn Zechariah, SN) Tetanus Vaccine: Yes (08/10/2016 15:48:Mavelyn Zechariah, SN) Tetanus Date: 07/02/16 (08/10/2016 15:48:Mavelyn Zechariah, SN) Tdap Vaccine: Yes (08/10/2016 15:48:Mavelyn Zechariah, SN) Tdap Date: 07/02/16 (08/10/2016 15:48:Mavelyn Zechariah, SN) Hepatitis B Vaccine: Uncertain (08/10/2016 15:48:Mavelyn Zechariah, SN) Laboratory Director: [facility] (08/10/2016 15:48:SN Veronica) Feeding Preference: Breast (08/10/2016 15:48:SN Veronica) Benefit of Breast Feed Discussed: Yes (08/10/2016 15:48:SN Veronica) Circumcision: N/A (08/10/2016 15:48:SN Veronica) Classes Attended: No (08/10/2016 15:48:SN Veronica) Tubal Ligation: No (08/10/2016 15:48:SN Veronica) Tubal Authorization Signed: N/A (08/10/2016 15:48:SN Veronica) Consent: N/A (08/10/2016 15:48:SN Veronica) Consent Signed: N/A (08/10/2016 15:48:SN Veronica) Pain Management Plans: Natural; Medications (08/10/2016 15:48:SN Veronica) Plans for Labor and Delivery: None (08/10/2016 15:48:SN Veronica) Support Person: Ricky Matta (08/10/2016 15:48:SN Veronica) Support Person Relationship: (08/10/2016 15:48:SN Veronica) Cultural/Spritual Practice: No (08/10/2016 15:48:SN Veronica) Spir/Cult Dietary Needs: No (08/10/2016 15:48:SN Veronica) LIVING SITUATION/DISCHARGE PLAN Living Arrangements: House (08/10/2016 15:48:SN Veronica) Adequate Access to:: Electric; Heat; Refrigeration; Plumbing/Running water; Phone; Transportation (08/10/2016 15:48:SN Veronica) WIC Program: Yes (08/10/2016 15:48:SN Veronica) Discharge Acid Tank Liner Person: Ricky Matta (08/10/2016 15:48:SN Veronica) Person to Help after Discharge: Ricky Matta (08/10/2016 15:48:SN Veronica) Currently Using Commun Resources: Yes (08/10/2016 15:48:SN Veronica) Specify Current Resource Used: WIC (08/10/2016 15:48:SN Veronica) Outside Agency/Scraper Operator: No (08/10/2016 15:48:SN Veronica) Car Seat for Discharge: Yes (08/10/2016 15:48:SN Veronica) Adoption Requested: No (08/10/2016 15:48:SN Veronica) Pt Contact w/ Post : N/A (08/10/2016 15:48:SN Veronica) LABS Blood Type: A Positive (08/10/2016 15:48:SN Veronica) Antibody Screen: negative (08/10/2016 15:48:DANIAL Dumont) Hemoglobin: 8.7 L (09/23/2016 12:50:QS system process) Hematocrit: 28.5 L (09/23/2016 12:50:QS system process) MCV: 78 L (09/23/2016 12:50:QS system process) Group Beta Strep: negative (08/10/2016 15:48:SN Veronica) Gonorrhea: Negative (08/10/2016 15:48:SN Veronica) Chlamydia: Negative (08/10/2016 15:48:SN Veronica) RPR/VDRL: Nonreactive (08/10/2016 15:48:SN Veronica) HIV Exposure Test: Negative (08/10/2016 15:48:SN Veronica) Hepatitis B: Negative (08/10/2016 15:48:SN Veronica) Rubella: Immune (08/10/2016 15:48:SN Veronica) OB/PREVIOUS HISTORY Previous Procedures: None (08/10/2016 15:48:SN Veronica) Current Procedures: Ultrasound; NST (08/10/2016 15:48:SN Veronica) History of Previous : No (08/10/2016 15:48:SN Veronica) History of Gestational Diabetes: No (08/10/2016 15:48:SN Veronica) History of PIH: No (08/10/2016 15:48:SN Veronica) History of Incompetent Cervix: No (08/10/2016 15:48:SN Veronica) History of Placenta Previa/Abrup: No (08/10/2016 15:48:SN Veronica) History of Macrosomia: No (08/10/2016 15:48:SN Veronica) History of IUGR: No (08/10/2016 15:48:SN Veronica) History of Hemorrhage: No (08/10/2016 15:48:SN Veronica) History of Loss/Stillborn: No (08/10/2016 15:48:SN Veronica) History of : No (08/10/2016 15:48:SN Veronica) History of D (Rh) Sensitization: No (08/10/2016 15:48:SN Veronica) History Recurrent Loss/Stillborn: No (08/10/2016 15:48:SN Veronica) History Depression/PP Depression: No (08/10/2016 15:48:SN Veronica) History of Uterine Anomaly/DARIO: No (08/10/2016 15:48:SN Veronica) History of Infertility: No (08/10/2016 15:48:SN Veronica) History of ART Treatment: No (08/10/2016 15:48:SN Veronica) History of DARIO: No (08/10/2016 15:48:SN Veronica) Comments Obstetrical History: G1 - 2 vessels cord (08/10/2016 15:48:SN Veronica) MEDICAL HISTORY Med Hx Diabetes: No (08/10/2016 15:48:SN Veronica) Med Hx Hypertension: No (08/10/2016 15:48:SN Veronica) Med Hx Heart Disease: No (08/10/2016 15:48:SN Veronica) Med Hx Autoimmune Disorder: No (08/10/2016 15:48:SN Veronica) Med Hx Kidney Disease/UTI: No (08/10/2016 15:48:SN Veronica) Med Hx Neurologic/Epilepsy: No (08/10/2016 15:48:SN Veronica) Med Hx Psychiatric Disorders: No (08/10/2016 15:48:SN Veronica) Med Hx Hepatitis/Liver Disease: No (08/10/2016 15:48:SN Veronica) Med Hx Varicosities/Phlebitis: No (08/10/2016 15:48:SN Veronica) Med Hx Thyroid Dysfunction: No (08/10/2016 15:48:SN Veronica) Med Hx Trauma/Violence: No (08/10/2016 15:48:SN Veronica) Med Hx Blood Transfusion: No (08/10/2016 15:48:SN Veronica) Med Hx Pulmonary (Asthma,TB): No (08/10/2016 15:48:SN Veronica) Med Hx Breast: No (08/10/2016 15:48:SN Veronica) Med Hx RETURNED GOODS REPAIRER Surgery: No (08/10/2016 15:48:SN Veronica) Med Hx Hospitalization/Surgery: No (08/10/2016 15:48:SN Veronica) Med Hx Anesthetic Complications: No (08/10/2016 15:48:SN Veronica) Med Hx Abnormal Pap Smear: No (08/10/2016 15:48:SN Veronica) Other Medical Diseases: No (08/10/2016 15:48:SN Veronica) Med Hx Significant Family Hx: No (08/10/2016 15:48:SN Veronica) INFECTIOUS HISTORY Inf Hx Gonorrhea: No (08/10/2016 15:48:SN Veronica) Inf Hx Chlamydia: No (08/10/2016 15:48:SN Veronica) Inf Hx Syphilis: No (08/10/2016 15:48:SN Veronica) Inf Hx HIV/AIDS: No (08/10/2016 15:48:SN Veronica) Inf Hx Human Papilloma Virus: No (08/10/2016 15:48:SN Veronica) Inf Hx Pt/Partner Genital Herpes: No (08/10/2016 15:48:SN Veronica) Inf Hx Tuberculosis/Exposure: No (08/10/2016 15:48:SN Veronica) Inf Hx Hepatitis B,C: No (08/10/2016 15:48:SN Veronica) Inf Hx Rash or Viral Illness: No (08/10/2016 15:48:SN Veronica) GENETIC HISTORY Gen Hx Age >=35 at IRINEO: No (08/10/2016 15:48:SN Veronica) Gen Hx Thalassemia: No (08/10/2016 15:48:SN Veronica) Gen Hx Congenital Heart Defect: No (08/10/2016 15:48:SN Veronica) Gen Hx Neural Tube Defect: No (08/10/2016 15:48:SN Veronica) Gen Hx Down's Syndrome: No (08/10/2016 15:48:SN Veronica) Gen Hx En-Sachs: No (08/10/2016 15:48:SN Veronica) Gen Hx Ezequiel: No (08/10/2016 15:48:SN Veronica) Gen Hx Familial Dysautonomia: No (08/10/2016 15:48:SN Veronica) Gen Hx Sickle Cell Disease/Trait: No (08/10/2016 15:48:SN Veronica) Gen Hx Hemophilia/Blood Disorder: No (08/10/2016 15:48:SN Veronica) Gen Hx Muscular Dystrophy: No (08/10/2016 15:48:SN Veronica) Gen Hx Cystic Fibrosis: No (08/10/2016 15:48:SN Veronica) Gen Hx [place] Chorea: No (08/10/2016 15:48:SN Veronica) Gen Hx Mental Retardation/Autism: No (08/10/2016 15:48:SN Veronica) Gen Hx Tested for Fragile X: No (08/10/2016 15:48:SN Veronica) Gen Hx Other Inher/Chromosomal: No (08/10/2016 15:48:SN Veronica) Gen Hx Maternal Metabolic DO: No (08/10/2016 15:48:SN Veronica) Gen Hx Pt Father or FOB Defect: No (08/10/2016 15:48:SN Veronica) Gen Hx Other Genetic History: No (08/10/2016 15:48:SN Veronica) Gen Hx Drugs/Meds since LMP: No (08/10/2016 15:48:SN Veronica)
--- NOTE | 2016-09-24 06:01 | L&D Current Admission ---
Current Admit Datetime Report Generated by CPN: 09/24/2016 06:00 ADMISSION INFORMATION Current Admit Date/Time: 09/22/2016 20:52 (09/18/2016 15:32:Margot Castillo) Reason for Admission: Onset of Labor (09/18/2016 15:32:Margot Castillo) Chief Complaint: Suspected Rupture of Membranes (09/22/2016 20:54:Margot Castillo) EGA per Dates: 40.0 (09/18/2016 15:32:QS system process) Method of Arrival: Wheelchair (09/18/2016 15:32:Margot Castillo) Admitted From: Home (09/18/2016 15:32:Margot Castillo) Records Available: Yes (09/18/2016 15:32:Margot Castillo) General Admission Information: Reviewed (09/18/2016 15:32:Margot Castillo) General Admission Reviewed By: Caitlyn Castillo Rn (09/18/2016 15:32:Margot Castillo) BELONGINGS/ADVANCED DIRECTIVES Other Belongings: see consent (09/18/2016 15:32:Margot Castillo) Advance Direct for Healthcare: No, and Wants No Information (09/18/2016 15:32:Margot Castillo) Date/Time Adv Directive on Chart: 09/22/2016 20:53 (09/18/2016 15:32:Margot Castillo) Durable Power of Building Construction Foreman: No (09/18/2016 15:32:Margot Castillo) Living Will: No (09/18/2016 15:32:Margot Castillo) Organ Donor: No (09/18/2016 15:32:Margot Castillo) Pt Rights Information Given: Yes (09/18/2016 15:32:Margot Castillo) Pt Understands Pt Rights: Yes (09/18/2016 15:32:Margot Castillo) Patient Rights Comments: patient access (09/18/2016 15:32:Margot Castillo) LEARNING ASSESSMENT Knowledge Level: Understands L_D Process (09/18/2016 15:32:Margot Castillo) Barriers to Learning: None (09/18/2016 15:32:Margot Castillo) Learning Readiness: Motivated (09/18/2016 15:32:Margot Castillo) Learns Best By: 1 to 1 Instruction (09/18/2016 15:32:Margot Castillo) Learning Needs: Labor and Delivery Process; Pain Management; Symptoms to Report; Treatment Plan; Medication (09/18/2016 15:32:Margot Castillo) DOMESTIC VIOLANCE SCREENING Dom Viol Threatened/Hurt: No (09/18/2016 15:32:Margot Castillo) Hx of Abuse/Neglect past 2yrs: No (09/18/2016 15:32:Margot Castillo) Feel Unsafe Going Home: No (09/18/2016 15:32:Margot Castillo) Addt'l Observ Indicating Abuse: No (09/18/2016 15:32:Margot Castillo) Reason Unable to Complete Screen: N/A, Screen Completed (09/18/2016 15:32:Margot Castillo) Considered Personal Harm/Suicide: No (09/18/2016 15:32:Margot Castillo) NUTRITIONAL/FUNCTIONAL SCREENING Problem with Appetite >5 Days: No (09/18/2016 15:32:Margot Castillo) Chew/Swallow Difficulties: No (09/18/2016 15:32:Margot Castillo) Inappropriate Wt Gain/Loss: No (09/18/2016 15:32:Margot Castillo) Presence Skin Breakdown/Ulcer: No (09/18/2016 15:32:Margot Castillo) Special Diet: No (09/18/2016 15:32:Margot Castillo) Pt Requests Rrts Visit: No (09/18/2016 15:32:Margot Castillo) Hx of Any of the Following?: N/A (09/18/2016 15:32:Margot Castillo) New Diagnosis of: N/A (09/18/2016 15:32:Margot Castillo) Requires Assist w/Ambulation: No (09/18/2016 15:32:Margot Castillo) Uses Assist Device to Ambulate: No (09/18/2016 15:32:Margot Castillo) Pt Requires Help w/ADL's: No (09/18/2016 15:32:Margot Castillo)
[2016-09-24] MEDS: SIMETHICONE 80 MG TAB.CHEW PO PRN ×2 (06:04→23:49)
--- NOTE | 2016-09-24 06:16 | L&D Care Plan ---
LD CARE PLANS Datetime Report Generated by CPN: 09/24/2016 06:15 Datetime: 09/22/2016 21:22 State: Risk For (Sarah Junior RN) Related To: Labor and Delivery Process; Surgical Procedure (Sarah Junior RN) Goal(s): Patients Pain will be Assessed and Managed; Patient will Verbalize Adequate Relief of Pain or the Ability to [place] with Current Pain (Sarah Junior RN) Interventions: Assess Pain Severity on Scale of 0 (None) to 5 (Severe); Assess Type, Location and Intensity of Pain Each Time Client Reports Discomfort and Notify Provider if Unusal Pain Develops; Encourage Proper Breathing and Relaxation Techniques; Offer Alternatives Such as Repositioning, Calm Environment, Massages, Diversional Activities, Ice Pack, Splinting, and Ambulation; Administer Analgesics as Ordered; Assist with Epidural Placement as Appropriate; Evaluate Therapeutic Effectiveness of Medication and Treatments (Sarah Junior RN) Outcome: Patient will Report Absence or Relief of Pain Consistent with Established Pain Goal (Sarah Junior RN) Outcome: Patient will have a Decrease in Signs and Symptoms of Discomfort (aSrah Junior RN) Outcome: Pain will be Controlled During Procedures (Sarah Junior RN) State: Risk For (Sarah Junior RN) Related To: Labor and Delivery Process; Surgical Procedure; Perceived or Actual Threat to ; Fear of Unknown; Situational Crisis (Sarah Junior RN) Goal(s): Patient will have Decreased Anxiety and be able to Function at Acceptable Levels (Sarah Junior RN) Interventions: Assess Verbal and Nonverbal Behavioral Indicators of Anxiety; Assist Patient to Identify and Verbalize Symptoms of Anxiety; Identify and Demonstrate Techniques to Control Anxiety; Assist Patient with Coping Mechanisms to Manage Anxiety; Provide Theraputic Touch for the Patient; Explain to Patient, Using a Calm Reassuring Approach and Nonmedical Terms, All Activities, Procedures, and Concerns; Instruct Patient and Family about Post Discharge Care, Limitations, Symptoms to Report and Resources Available (Sarah Junior RN) Outcome: Patient will Identify, Verbalize and Demonstrate Techniques to Control Anxiety (Sarah Junior RN) Outcome: Patient's Posture, Facial Expressions, Gestures and Activity Level will Reflect Decreased Anxiety (Sarah Junior RN) Outcome: Patient will Verbalize a Sense of Control and/or Acceptance of the Situation (Sarah Junior RN) Outcome: Patient will Identify and Utilize Support Person (Sarah Junior RN) State: Risk For (Sarah Junior RN) Related To: Labor and Delivery Process; Treatment and Procedures (Sarah Junior RN) Goal(s): Patient will Accurately Verbalize Understanding of Plan of Care and Treatment; Patient and Family will Accurately Verbalize Understanding of the Disease Process (Sarah Junior RN) Interventions: Assess Motivation and Willingness of Patient/Family to Learn; Assess Preferred Learning Mode: One to One Instruction, Reading, Videos, Group Discussion or Demonstration; Assess Barriers to Learning: Pain, Emotional State, Language Barrier, Cognitive Impairment, Visual or Hearing Deficits; Assess Patient and Family Knowledge of Disease Process, Medications and Treatment; Discuss Therapy and/or Treatment Options, Describe Rationale Behind Management, Therapy and Treatment Recommendations; Instruct Patient and Family on Signs and Symptoms to Report; Instruct Patient and Family on Medication Effects and Side Effects; Provide Appropriate and Timely Education Using Multiple Techniques; Provide Patient and Family with Support Group Information and Resources; Give Clear and Thorough Explanations and Demonstrations (Sarah Junior RN) Outcome: Patient and Family will Verbalize Understanding of Condition, Treatment and Signs and Symptoms to Report (Sarah Junior RN) Outcome: Patient will Identify Perceived Learning Needs and Express Motivation to Learn (Sarah Junior RN) Outcome: Patient will Verbalize Understanding of Desired Content, and/or Performs Desired Skill Prior to Discharge (Sarah Junior RN) State: Risk For (Sarah Junior RN) Related To: Surgical Procedures; Prolonged Labor or Induction (Sarah Junior RN) Goal(s): The Patient will be Free of Infection, Vital Signs Stable and Lab Work within Normal Parameters (Sarah Junior RN) Interventions: Instruct and Reinforce Proper Handwashing, Hygiene, and Care Techniques to Patient and Family; Monitor Vital Signs; Monitor Patient for the Following Signs of Infection: Fever, Abdominal Tenderness, Unusual Discharge; Monitor Aminiotic Fluid, Urine and Lochia for Color and Odor; Observe Wounds, Incisions and Invasive Line Sites for Redness, Drainage and Edema; Assess IV Sites per Hospital Policy; Monitor Lab and Test Results and Notify Provider of Abnormal Findings; Assess Nutritional Status and Promote Good Nutrition (Sarah Junior RN) Outcome: Patient will Remain Free of Infection (Sarah Junior RN) Outcome: Infection will be Recognized Early to Allow for Prompt Treatment (Sarah Junior RN) Outcome: Patient will have Vital Signs Within Expected Range (Sarah Junior RN) State: Risk For (Sarah Junior RN) Related To: Surgical Procedures; Prolonged Labor or Induction (Sarah Junior RN) Goal(s): Patient will Achieve and Maintain a Balanced Fluid Volume Status; Hemodynamically Stable (Sarah Junior RN) Interventions: Monitor Vital Signs; Auscultate Breath Sounds; Monitor Patient for Skin Turgor, Mucous Membranes, Dry Skin, Weakness, Headaches and Confusion; Provide Oral Fluids as Ordered; Initiate and Maintain Intravenous Fluids as Ordered; Monitor Intake and Output as Indicated Per Patient Status; Accurately Measure Blood Loss; Monitor Lab and Test Results as Obtained and Notify Provider of Abnormal Findings; Monitor Patient's Weight (Sarah Junior RN) Outcome: Patient will have Clear Lung Sounds (Sarah Junior RN) Outcome: Patient will have Vital Signs within Expected Range (Sarah Junior RN) Outcome: Urine Output will be within Expected Range (Sarah Junior RN) Outcome: Patient will have Minimal Generalized or Upper Extremity Edema (Sarah Junior RN) State: Risk For (Annotations: Data stored by CPN on behalf of user) (Sarah Junior RN)
[2016-09-24 07:32] LABS: HGB HCT DIFFERENCE -1.3; MEAN CORPUSCULAR HEMOGLOBIN 23.8 pg (27.0-33.4); MEAN CORPUSCULAR HGB CONC 31.1 g/dL (32.0-36.0); MEAN CORPUSCULAR VOLUME 77 fl (80-97); RED BLOOD COUNT 2.88 10^6/uL (3.72-5.28); RED CELL DISTRIBUTION WIDTH 16.2 % (11.5-14.0); WHITE BLOOD COUNT 19.8 10^3/uL (4.0-10.5)
[2016-09-24 07:34] LABS: HEMOGLOBIN 6.9 g/dL (12.0-15.5)
[2016-09-24] MEDS ORDERED: IBUPROFEN 800 MG TABLET ONE (09:39)
[2016-09-24] MEDS: DOCUSATE SODIUM 100 MG CAPSULE PO SCH ×2 (10:03→17:22)
[2016-09-24] MEDS: PRENATAL VITAMIN W-O CA NO5/FE FUMARATE/FA CAPSULE PO SCH (10:05)
--- NOTE | 2016-09-24 10:30 | PDOC PROGRESS REPORT ---
Subjective-OB Subjective: Post Delivery Day: 20 year old. Denies any needs at this time Physical Exam (OB) Vital Signs: Temp Pulse Resp BP Pulse Ox 98.1 F 96 18 107/68 95 09/24/16 04:17 09/24/16 04:17 09/24/16 04:17 09/24/16 04:17 09/24/16 04:17 Intake & Output 09/23/16 09/24/16 09/25/16 06:59 06:59 06:59 Output Total 1100 Balance -1100 Weight 74.25 kg - Dressing Removed: Yes - Lochia Lochia Amount: Scant < 10 ml Lochia Color: Rubra/Red - Abdomen Description: Tender, Soft, Round Hernia Present: No Bowel Sounds: Normoactive Flatus Presence: Absent Stool: No Fundal Description: Firm, Midline Fundal Height: u/u - u/2 Objective-Diagnostic Laboratory: 09/24/16 06:47 09/23/16 09/24/16 12:50 06:47 WBC 22.9 H 19.8 H RBC 3.67 L 2.88 L Hgb 8.7 L 6.9 L Hct 28.5 L 22.0 L MCV 78 L 77 L MCH 23.7 L 23.8 L MCHC 30.5 L 31.1 L RDW 15.5 H 16.2 H Plt Count 182 199 Seg Neutrophils % Not Reportable Lymphocytes % Not Reportable Monocytes % Not Reportable Eosinophils % Not Reportable Basophils % Not Reportable Absolute Neutrophils Not Reportable Absolute Lymphocytes Not Reportable Absolute Monocytes Not Reportable Absolute Eosinophils Not Reportable Absolute Basophils Not Reportable
[2016-09-25] MEDS: IBUPROFEN 800 MG TABLET PO SCH ×3 (05:49→17:37)
[2016-09-25] MEDS: CEFAZOLIN SODIUM 1 GM in DEXTROSE 5%-WATER 50 ML IV SCH ×3 (05:50)
[2016-09-25 06:35] LABS: ABSOLUTE EOSINOPHILS # (AUTO) 0.1 10^3/uL (0.0-0.6); ABSOLUTE LYMPHOCYTES (AUTO) 1.4 10^3/uL (0.5-4.7); ABSOLUTE MONOCYTES (AUTO) 0.5 10^3/uL (0.1-1.4); ABSOLUTE NEUT (AUTO) 12.9 10^3/uL (1.7-8.2); BASOPHILS % (AUTO) 0.1 % (0-2); EOSINOPHILS % (AUTO) 0.4 % (0-6); HEMATOCRIT 19.7 % (36.0-47.0); HGB HCT DIFFERENCE -1.4; LYMPHOCYTES % (AUTO) 9.3 % (13-45); MEAN CORPUSCULAR HEMOGLOBIN 23.8 pg (27.0-33.4); MEAN CORPUSCULAR HGB CONC 31.1 g/dL (32.0-36.0); MEAN CORPUSCULAR VOLUME 76 fl (80-97); MONOCYTES % (AUTO) 3.5 % (3-13); RED BLOOD COUNT 2.58 10^6/uL (3.72-5.28); SEGMENTED NEUTROPHILS % (AUTO) 86.7 % (42-78); WHITE BLOOD COUNT 14.8 10^3/uL (4.0-10.5)
[2016-09-25 06:37] LABS: HEMOGLOBIN 6.1 g/dL (12.0-15.5)
[2016-09-25] MEDS ORDERED: ACETAMINOPHEN 325 MG TABLET PO PRN (07:38)
[2016-09-25] MEDS ORDERED: DIPHENHYDRAMINE HCL 50 MG CAPSULE PO PRN (07:40)
[2016-09-25] MEDS: PRENATAL VITAMIN W-O CA NO5/FE FUMARATE/FA CAPSULE PO SCH (09:28)
[2016-09-25] MEDS: DOCUSATE SODIUM 100 MG CAPSULE PO SCH ×2 (09:28→17:37)
--- NOTE | 2016-09-25 11:11 | PDOC PROGRESS REPORT ---
Subjective-OB Subjective: Post Delivery Day: 20 year old. Denies any needs at this time. Ready to go home. Physical Exam (OB) Vital Signs: Temp Pulse Resp BP Pulse Ox 97.9 F 104 H 18 103/69 100 09/25/16 10:30 09/25/16 10:30 09/25/16 10:30 09/25/16 10:30 09/25/16 10:30 Intake & Output 09/24/16 09/25/16 09/26/16 06:59 06:59 06:59 Intake Total 0 Output Total 1100 Balance -1100 0 Baby 1 Female 3.714 kg - PIH/Pre-Eclampsia Clonus: Negative Headache: Absent Epigastric Pain: No Visual Changes: No - Dressing Removed: Yes Incision: Open, Well Approximated Closure Type: Mckayla - Lochia Lochia Amount: Scant < 10 ml Lochia Color: Rubra/Red - Abdomen Description: Soft, Round Hernia Present: No Bowel Sounds: Normoactive Flatus Presence: Present Stool: Yes Fundal Description: Firm, Midline Fundal Height: u/u - u/2 Objective-Diagnostic Laboratory: 09/25/16 06:20 09/22/16 09/22/16 09/25/16 21:20 21:20 06:20 WBC 12.3 H 14.8 H RBC 4.40 2.58 L Hgb 10.6 L 6.1 L Hct 33.4 L 19.7 L MCV 76 L 76 L MCH 24.2 L 23.8 L MCHC 31.9 L 31.1 L RDW 15.7 H 16.0 H Plt Count 224 220 Seg Neutrophils % 79.9 H 86.7 H Lymphocytes % 12.6 L 9.3 L Monocytes % 6.7 3.5 Eosinophils % 0.3 0.4 Basophils % 0.5 0.1 Absolute Neutrophils 9.8 H 12.9 H Absolute Lymphocytes 1.6 1.4 Absolute Monocytes 0.8 0.5 Absolute Eosinophils 0.0 0.1 Absolute Basophils 0.1 0.0 Blood Type A POSITIVE Antibody Screen NEGATIVE Assessment and Plan(PN) - Assessment and Plan (1) Delivery by emergency caesarean section Is this a current diagnosis for this admission?: Yes (2) Failure to progress in labor Is this a current diagnosis for this admission?: Yes (3) Non-reassuring electronic monitoring tracing Is this a current diagnosis for this admission?: Yes (4) Is this a current diagnosis for this admission?: Yes (5) Two vessel umbilical cord Is this a current diagnosis for this admission?: Yes
--- NOTE | 2016-09-25 11:17 | PDOC DISCHARGE SUMMARY ---
Final Diagnosis Discharge Date: 09/25/16 - Final Diagnosis (1) Delivery by emergency caesarean section Is this a current diagnosis for this admission?: Yes (2) Failure to progress in labor Is this a current diagnosis for this admission?: Yes (3) Non-reassuring electronic monitoring tracing Is this a current diagnosis for this admission?: Yes (4) Is this a current diagnosis for this admission?: Yes (5) Two vessel umbilical cord Is this a current diagnosis for this admission?: Yes Discharge Data - Discharge Medication Home Medications: Pnv with Ca,No.72/Iron/FA [Pnv Plus Multivit Tab] 1 each PO DAILY 08/10 Ferrous Sulfate 325 mg PO BID #60 tablet. 09/25/16 Ibuprofen [Motrin 800 mg Tablet] 800 mg PO Q6 #30 tablet 09/25/16 Oxycodone HCl/Acetaminophen [Percocet 5-325 mg Tablet] 1 tab PO Q4HP PRN #20 tablet 09/25/16 Gestational Age: 40.1 wks Reason(s) for Admission: PROM Procedures: Ultrasound Intrapartum Procedure(s): : Low Cervical, Transverse - Data Baby 1 Female at 1 minute: 1 at 5 minutes: 9 Weight: 3.714 kg Home with Mother: Yes Complications: No - Diagnosis Test Laboratory: Temp Pulse Resp BP Pulse Ox 98.1 F 96 18 107/68 95 09/24/16 04:17 09/24/16 04:17 09/24/16 04:17 09/24/16 04:17 09/24/16 04:17 09/22/16 09/22/16 09/23/16 20:46 21:20 12:50 RBC 4.40 3.67 L Hgb 10.6 L 8.7 L Hct 33.4 L 28.5 L Urine Opiates Screen NEGATIVE 09/24/16 06:47 RBC 2.88 L Hgb 6.9 L Hct 22.0 L Urine Opiates Screen - Discharge information/Instructions Discharge Activity: Activity As Tolerated, Balance Activity w/Rest, Pelvic Rest , Slowly Increase Activity, No tub bath Discharge Diet: Regular Disposition: HOME, SELF-CARE Follow up with: [facility] in: 1, Weeks
[2016-09-25 15:40] VITALS: BP 107/75
[2016-09-25 17:01] LABS: HEMATOCRIT 25.6 % (36.0-47.0); HGB HCT DIFFERENCE -0.1; MEAN CORPUSCULAR HEMOGLOBIN 25.9 pg (27.0-33.4); MEAN CORPUSCULAR HGB CONC 33.1 g/dL (32.0-36.0); MEAN CORPUSCULAR VOLUME 78 fl (80-97); RED BLOOD COUNT 3.27 10^6/uL (3.72-5.28); RED CELL DISTRIBUTION WIDTH 17.4 % (11.5-14.0); WHITE BLOOD COUNT 13.3 10^3/uL (4.0-10.5)
[2016-09-25 17:09] LABS: HEMOGLOBIN 8.5 g/dL (12.0-15.5)
--- NOTE | 2016-11-07 22:43 | Operative Report ---
Operative Report DATE OF SURGERY: 09/23/16 PREOPERATIVE DIAGNOSIS: 40wk srom, failure to progress, nontolerance, chorioamnionitis POSTOPERATIVE DIAGNOSIS: same, delivered OPERATION: Primary Low Transverse Section SURGEON: PAWAN HONEYCUTT ANESTHESIA: GA - high spinal converted to General Anesthesia TISSUE REMOVED OR ALTERED: placenta COMPLICATIONS: none ESTIMATED BLOOD LOSS: 1000 INTRAOPERATIVE FINDINGS: viable female wt 8-3, ap 1/9. tight nuchal times 2, thick meconium. high spinal leading to general anesthesia, pphemorhage from atony- pit/methergine/cytotec PROCEDURE: After appropriate consents had been obtained, the patient was taken to the operating room where regional anesthesia was placed without difficulty. The patient was prepped and draped in the normal sterile fashion in the dorsal supine position with a leftward tilt. Time out procedure was performed. Anesthesia was determined to be adequate and a pfannenstiel incision was made through the prior scar. The fascia was nicked in the midline then extended bilaterally with Gamez scissors. The fascia was elevated and then the rectus muscles dissected off sharply. The rectus muscles were then in the midline and the peritonuem identified. The peritoneum was entered sharply and extended with good visualization of the bladder. Bladder blade was inserted and the bladder flap carefully dissected off the lower uterine segment. A transverse incision was made with the scalpel then extended bilaterally in an upward outward motion across the lower uterine segment. Amniotomy revealed clear fluid. The vertex was grasped and elevated easily through the incision followed by the remainder of the infant. The cord was doubly clamped and ligated. The was handed off the operative field to the waiting pediatric team. The placenta was then extracted manually intact. The uterus was exteriorized and cleansed of membranous tissue with a sponge on the subway operator's hand. The uterine incision was then repaired using 0 vicryl in a running locked fashion. A second layer of the same suture was used to imbricate for hemastasis. The uterus was then returned to the abdomen and gutters were cleared of clots and debris. The fascial incision was closed with 0 vicryl in a running fashion to the midline. The subcutaneous layer was closed with 0 plain in a running stitch. the skin was closed with 4-0 monocryl in subcuticular running stitch. Sponge, lap and needle counts were correct. The patient was transferred to recovery in stable condition.
== END 2016-09-25 18:55 | disposition home or self-care (01) | DRG 765 ==
LOC: LC 20:23 → LR 21:13 → 2S 09-23 14:15
PROVIDERS: ADMIT Specialist; ATTEND Specialist
PROC: 10D00Z1 Extraction of Products of Conception, Low, Open Approach (ICD-10-PCS; principal; 2016-09-23)
PROC: 4A1HXCZ Monitoring of Products of Conception, Cardiac Rate, External Approach (ICD-10-PCS; 2016-09-23)
PROC: 30233N1 Transfusion of Nonautologous Red Blood Cells into Peripheral Vein, Percutaneous Approach (ICD-10-PCS; 2016-09-25)
DX: O76 Abnormality in fetal heart rate and rhythm complicating labor and delivery (principal); O41.1230 Chorioamnionitis, third trimester, not applicable or unspecified; O62.1 Secondary uterine inertia; O42.92 Full-term premature rupture of membranes, unspecified as to length of time between rupture and onset of labor; O69.1XX0 Labor and delivery complicated by cord around neck, with compression, not applicable or unspecified; O77.0 Labor and delivery complicated by meconium in amniotic fluid; Z3A.40 40 weeks gestation of pregnancy; Z37.0 Single live birth
CPT/HCPCS: 1961; 36415; 36430; 80307; 81005; 84112; 85025; 85027; 86592; 86850; 86900; 86901; 86920; 88307; 94760; J0330; J0690; J1885; J2210; J2250; J2370; J2405; J2590; J3010; J3490; J7120; P9016